=== PATIENT | female | born 1950 | race Hispanic/Latino ===

== ENCOUNTER 2017-03-31 04:15 | Observation (INO) | payer MEDICARE, BC ==
[~2017-03-31] VITALS: Ht 154.9 cm; Wt 71.2 kg
[~2017-03-31 04:15] MED LIST: CLONAZEPAM0.25 MG PO; CLOPIDOGREL75 MG PO; GLIMEPIRIDE2 MG PO; HYDRALAZINE HC100 MG PO; JANUVIA100 MG PO; LEXAPRO10 MG PO; LOSARTAN POTASS25 MG PO; METFORMIN HCL500 MG PO; PRAVASTATIN SOD40 MG PO; PROCARDIA XL90 MG PO; SYNTHROID50 MCG PO; TORSEMIDE20 MG PO; TRAZODONE HCL50 MG PO; XARELTO15 MG PO
[2017-03-31 04:36] LABS: BASOPHILS # (AUTO) 0.1 (0.0-0.1); EOSINOPHILS # (AUTO) 0.3 (0.0-0.4); EOSINOPHILS % 4.8 % (0.0-6.0); HEMATOCRIT 28.7 % (34.2-44.1); HEMOGLOBIN 9.3 g/dL (12.0-16.0); LYMPHOCYTES # (AUTO) 0.7 (1.0-3.2); LYMPHOCYTES % 13.3 % (18.0-39.1); MEAN CORPUSCULAR HEMOGLOBIN 30.7 pg (28-32); MEAN CORPUSCULAR HGB CONC 32.4 g/dL (31-35); MEAN CORPUSCULAR VOLUME 94.7 fL (81-99); MONOCYTES # (AUTO) 0.4 (0.2-0.8); MONOCYTES % 6.8 % (4.4-11.3); NEUTROPHILS # (AUTO) 3.9 (2.1-6.9); NEUTROPHILS % 73.9 % (38.7-80.0); PLATELET COUNT 263 x10e3/uL (140-360); RED BLOOD COUNT 3.03 x10e6/uL (3.6-5.1); RED CELL DISTRIBUTION WIDTH 13.2 % (11.7-14.4)
[2017-03-31] MEDS ORDERED: SODIUM CHLORIDE 0.9% 1000ML 1,000 ML ONE (04:37)
[2017-03-31] MEDS ORDERED: SODIUM CHLORIDE 0.9% 1000ML 1,000 ML IV ONE ×2 (04:45→05:45)
[2017-03-31 04:56] LABS: ALBUMIN 3.4 g/dL (3.5-5.0); ALBUMIN/GLOBULIN RATIO 1.1 (0.8-2.0); ANION GAP 14.8 mmol/L (8-16); CALCIUM 9.3 mg/dL (8.4-10.2); CREATININE, SERUM 2.17 mg/dL (0.57-1.11); POTASSIUM 3.8 mmol/L (3.5-5.1)
[2017-03-31 05:02] LABS: CREATINE KINASE MB 2.3 ng/mL (0.00-5.00); TROPONIN I 0.034 ng/mL (0-0.300)
--- NOTE | 2017-03-31 05:44 | Diagnostic Imaging Report ---
EXAMINATION: Head CT HISTORY: Weakness, near syncope COMPARISON: None. TECHNIQUE: Multidetector axial images were obtained without contrast from the foramen magnum to the vertex . The images were reconstructed using brain and bone algorithms. Thin section brain images were reformatted into coronal and sagittal planes. Intravenous contrast: None. Motion/streaking artifact limits the evaluation of the skull base and posterior cranial fossa. FINDINGS: Parenchyma: 1. Cortical subcortical encephalomalacia in the right opercular region involving the right medial/inferior frontal gyri, anterosuperior temporal and insular, with punctate calcification in the frontal wilson radiata and compensatory dilatation of the right lateral ventricle (mostly the frontal) as well as prominence of the overlying sulci. Associated overlying right pterional craniotomy, this may represent sequela from prior trauma and/or surgery. 2. No mass or hemorrhage. No CT evidence of acute territorial vascular insult. Extra-axial spaces:No abnormal density. No extra-axial fluid collections Brain volume: Moderate generalized portable Ventricles: No hydrocephalus or displacement. Arteries: No density suggestive of thrombus. Dural sinuses: No abnormal density. Extra-axial spaces: No abnormal density. Foramen magnum: No mass, Chiari malformation, or basilar invagination. Sella: Diffuse enlargement of the pituitary gland measuring about 11 mm maximum height, with possible pituitary adenoma versus hyperplasia, if clinically indicated a dedicated sella turcica MRI is recommended. Paranasal/mastoid sinuses: Imaged portions unremarkable. Skull/Scalp: No lytic or blastic lesions. No fractures. IMPRESSION: 1. No acute posttraumatic intracranial hemorrhage or CT evidence of acute cortical infarcts. 2. Right opercular encephalomalacia and overlying pterional craniotomy. 3. Incidentally noted enlargement of the pituitary gland as above. Signed by: Dr. Fernanda Simmons M.D. on 03/31/2017 5:41 AM
--- NOTE | 2017-03-31 05:47 | Diagnostic Imaging Report ---
CHEST SINGLE (PORTABLE), 03/31/2017 4:29 AM Technique: CHEST SINGLE (PORTABLE) Comparison: None available. Clinical history: Syncope Findings: See Impression Impression: 1. Mildly enlarged cardiac silhouette, likely accentuated by technique. Aortic calcification. 2. No consolidation or edema. 3. No effusion or pneumothorax. Signed by: Dr Shireen Boyer MD on 03/31/2017 5:43 AM
[2017-03-31] MEDS ORDERED: ONDANSETRON HCL INJ 2 MG/ML VIAL IV PRN (06:15)
[2017-03-31] MEDS ORDERED: DEXTROSE 50% SYRINGE 50 ML IV PRN (06:15)
[2017-03-31] MEDS: SODIUM CHLORIDE 0.9% 1000ML 1,000 ML IV SCH ×3 (06:40→21:14)
[2017-03-31] MEDS: INSULIN REGULAR, HUMAN 100 UNIT/1 ML 3ML VIAL SQ SCH ×4 (07:45→21:00)
[2017-03-31] MEDS ORDERED: LEVOTHYROXINE SODIUM 50 MCG TAB PO SCH (08:00)
[2017-03-31 08:30] VITALS: BP 177/72
[2017-03-31] MEDS: NIFEDIPINE CR 30 MG TAB PO SCH ×2 (09:00→13:19)
[2017-03-31] MEDS ORDERED: NIFEDIPINE 90 MG PO SCH (09:00)
[2017-03-31] MEDS: ESCITALOPRAM OXALATE 10 MG TAB PO SCH (09:00)
[2017-03-31] MEDS ORDERED: CLONAZEPAM 0.5 MG TAB PO SCH (09:00)
[2017-03-31] MEDS ORDERED: CLONAZEPAM 0.25 MG PO SCH (09:00)
[2017-03-31 09:07] VITALS: BP 177/72
[2017-03-31 12:39] VITALS: BP 177/75
[2017-03-31 16:48] VITALS: BP 187/75
--- NOTE | 2017-03-31 17:56 | History and Physical ---
CHIEF COMPLAINT: This 66-year-old female comes in with syncope and collapse. HISTORY OF PRESENTING ILLNESS: Ms. Kyle has a history of diabetes mellitus, hypertension, history of CVA in the past. She was in her usual state of health until she started her prep for colonoscopy, and went into the restroom at night time and could not get out of there. She collapsed and nearly lost consciousness. Apparently, there was no loss of consciousness. The patient did not have any seizure activity or apneic episode. She could not get up. A neighbor was called and the patient was rushed to the emergency room. She was found to have orthostatic hypotension and was admitted for dehydration and orthostasis. PAST MEDICAL HISTORY: History of hypertension, history of diabetes mellitus, history of HI, history of CVA, history of coronary artery disease. PAST SURGICAL HISTORY: History of brain surgery, history of PCI with stents. HOME MEDICATIONS: Atorvastatin, citalopram for depression, hydralazine 100 mg twice a day, losartan 50 mg 1/2 tablet daily, nifedipine 90 mg, Xarelto 15 mg and torsemide 20 mg, vitamin D ____ 3 times a day and calcium tablets. The patient is also on Klonopin as needed. REVIEW OF SYSTEMS: Negative for chest pain. Positive for some shortness of breath. No nausea, vomiting, diarrhea, no constipation. Diarrhea is secondary to the prep for colonoscopy. No diplopia and no blurry vision. Positive for weakness and tiredness. Positive for orthostasis. No headaches. PHYSICAL EXAMINATION GENERAL: The patient is alert and oriented x3. HEENT: Normocephalic, atraumatic. Pupils react to light and accommodation. CVS: S1 and S2 normal. Regular rate and rhythm. ABDOMEN: Nontender, nondistended. EXTREMITIES: No cyanosis, clubbing or edema. LABORATORY DATA: Labs of note, sodium 144, potassium 3.8, BUN 51, creatinine 2.17. White count is 5.26 and hemoglobin 9.3, hematocrit 28.7, platelets 263,000. 0.5. AST, ALT and alkaline phosphatase all normal. ASSESSMENT 1. Orthostatic hypotension secondary to fluid loss. 2. Acute kidney injury with history of chronic kidney disease. 3. History of hypertension. 4. History of diabetes mellitus. 5. History of anemia, presumably blood loss and that is why she is going to have a colonoscopy. PLAN: Will continue monitoring the patient. Dr. Juárez is on the case. Fluids have been started. Will check the CBC and CMP tomorrow. Will restart her home medications, except her blood thinners. Will hold back her blood pressure medicine secondary to her orthostasis and hypotension. Further recommendations depending on clinical course. Will continue to monitor the patient. The patient will probably be discharged after colonoscopy. Will keep her here and hydrate her. Job#: [id number]
[2017-03-31 19:25] VITALS: BP 163/65
[2017-03-31 20:00] VITALS: BP 163/65
[2017-03-31] MEDS: TRAZODONE HCL 50 MG TAB PO SCH (21:07)
[2017-03-31] MEDS: ATORVASTATIN 20 MG TAB PO SCH (21:07)
[2017-04-01 04:59] VITALS: BP 157/67
[2017-04-01] MEDS: SODIUM CHLORIDE 0.9% 1000ML 1,000 ML IV SCH ×2 (05:40→14:07)
[2017-04-01] MEDS ORDERED: CITRATE OF MAGNESIA 300ML BOTTLE PO ONE ×2 (06:30→07:30)
[2017-04-01 07:28] LABS: BASOPHILS % 0.7 % (0.0-1.0); EOSINOPHILS # (AUTO) 0.2 (0.0-0.4); EOSINOPHILS % 4.9 % (0.0-6.0); LYMPHOCYTES # (AUTO) 0.6 (1.0-3.2); LYMPHOCYTES % 14.8 % (18.0-39.1); MEAN CORPUSCULAR HGB CONC 33.2 g/dL (31-35); MEAN CORPUSCULAR VOLUME 93.4 fL (81-99); MONOCYTES # (AUTO) 0.4 (0.2-0.8); MONOCYTES % 8.6 % (4.4-11.3); NEUTROPHILS # (AUTO) 3.1 (2.1-6.9); NEUTROPHILS % 70.8 % (38.7-80.0); PLATELET COUNT 206 x10e3/uL (140-360); RED BLOOD COUNT 2.42 x10e6/uL (3.6-5.1); RED CELL DISTRIBUTION WIDTH 13.2 % (11.7-14.4)
[2017-04-01] MEDS: INSULIN REGULAR, HUMAN 100 UNIT/1 ML 3ML VIAL SQ SCH ×4 (07:30→21:00)
[2017-04-01 07:44] LABS: HEMOGLOBIN 7.5 g/dL (12.0-16.0)
[2017-04-01 07:45] LABS: HEMATOCRIT 22.6 % (34.2-44.1)
[2017-04-01 07:52] LABS: ALBUMIN 2.5 g/dL (3.5-5.0); ANION GAP 9.3 mmol/L (8-16); CALCIUM 8.2 mg/dL (8.4-10.2); CREATININE, SERUM 1.5 mg/dL (0.57-1.11); POTASSIUM 3.3 mmol/L (3.5-5.1)
[2017-04-01 08:27] VITALS: BP 172/72
[2017-04-01] MEDS ORDERED: SODIUM CHLORIDE 0.9% 250ML 250 ML IV ONE (09:00)
[2017-04-01] MEDS: LOSARTAN POTASSIUM 25 MG TAB PO SCH (09:00)
[2017-04-01] MEDS: CHOLECALCIFEROL 1,000 UNIT TAB PO SCH (09:00)
[2017-04-01] MEDS: HYDRALAZINE HCL 25 MG TAB PO SCH ×2 (09:00→17:00)
[2017-04-01] MEDS: OYST-CAL-D 500MG TABLET PO SCH (09:00)
[2017-04-01] MEDS: ESCITALOPRAM OXALATE 10 MG TAB PO SCH (09:00)
[2017-04-01 12:12] VITALS: BP 154/61
[2017-04-01] MEDS: HYDRALAZINE HCL 20 MG/ML VIAL IV PRN ×3 (12:52→19:40)
[2017-04-01] MEDS ORDERED: LIDOCAINE HCL 2% LOCAL INJ 5 ML SDV VIAL INJ ONE (13:49)
[2017-04-01] MEDS ORDERED: HYOSCYAMINE SULFATE 0.5 MG/ML AMP ONE (13:49)
[2017-04-01] MEDS ORDERED: PROPOFOL IV EMULSION 10 MG/ML 50 ML VIAL ONE (13:49)
[2017-04-01] MEDS ORDERED: FUROSEMIDE INJ 10 MG/ML 2 ML VIAL IV ONE ×2 (15:30→17:00)
[2017-04-01] MEDS ORDERED: MIDAZOLAM HCL 2 MG/2 ML VIAL ONE (15:41)
[2017-04-01] MEDS ORDERED: FENTANYL CITRATE/PF 100MCG/2 ML INJ ONE (15:41)
[2017-04-01 16:21] VITALS: BP 180/77
[2017-04-01] MEDS ORDERED: SODIUM CHLORIDE 0.9% 250ML 250 ML ONE (16:46)
[2017-04-01 20:00] VITALS: BP 108/62
[2017-04-01] MEDS: TRAZODONE HCL 50 MG TAB PO SCH (23:23)
[2017-04-01] MEDS: ATORVASTATIN 20 MG TAB PO SCH (23:23)
[2017-04-02] VITALS: BP 179/76
[2017-04-02 04:00] VITALS: BP 198/81
[2017-04-02] MEDS: INSULIN REGULAR, HUMAN 100 UNIT/1 ML 3ML VIAL SQ SCH (07:30)
[2017-04-02 08:18] VITALS: BP 143/74
[2017-04-02] MEDS: LOSARTAN POTASSIUM 25 MG TAB PO SCH (09:01)
[2017-04-02] MEDS: HYDRALAZINE HCL 25 MG TAB PO SCH (09:01)
[2017-04-02] MEDS: CHOLECALCIFEROL 1,000 UNIT TAB PO SCH (09:02)
[2017-04-02] MEDS: ESCITALOPRAM OXALATE 10 MG TAB PO SCH (09:02)
[2017-04-02] MEDS: NIFEDIPINE CR 30 MG TAB PO SCH (09:02)
[2017-04-02] MEDS: OYST-CAL-D 500MG TABLET PO SCH (09:02)
[2017-04-02 09:31] LABS: HEMATOCRIT 30.6 % (34.2-44.1); HEMOGLOBIN 10.5 g/dL (12.0-16.0)
== END 2017-04-02 10:31 | disposition home or self-care (01) ==
LOC: ER 04:15 → ERHOLD 06:14 → IMCU 08:13
PROVIDERS: ADMIT Family Medicine; ATTEND Family Medicine
DX: I95.1 Orthostatic hypotension (principal); E86.0 Dehydration; E86.1 Hypovolemia; N17.9 Acute kidney failure, unspecified; I10 Essential (primary) hypertension; E11.9 Type 2 diabetes mellitus without complications; D64.9 Anemia, unspecified; Z79.01 Long term (current) use of anticoagulants; Z86.73 Personal history of transient ischemic attack (TIA), and cerebral infarction without residual deficits; I25.10 Atherosclerotic heart disease of native coronary artery without angina pectoris; I25.2 Old myocardial infarction; K62.1 Rectal polyp; D12.3 Benign neoplasm of transverse colon; K57.30 Diverticulosis of large intestine without perforation or abscess without bleeding; D50.0 Iron deficiency anemia secondary to blood loss (chronic); K64.8 Other hemorrhoids
CPT/HCPCS: 36430; 45384; P9016; 36415; 45385; 70450; 71010; 80053; 82550; 82553; 82948; 84484; 85014; 85018; 85025; 86850; 86900; 86920; 88305; 93005; 99284; G0378; J0360; J1940; J1980; J2001; J2250; J7030; J7050; J7799

== ENCOUNTER → 2017-05-11 | Day surgery (SDC) | payer MEDICARE, BC ==
[2017-05-08 16:20] LABS: BASOPHILS % 0.6 % (0.0-1.0); EOSINOPHILS # (AUTO) 0.4 (0.0-0.4); EOSINOPHILS % 7.2 % (0.0-6.0); HEMATOCRIT 29.5 % (34.2-44.1); HEMOGLOBIN 9.5 g/dL (12.0-16.0); LYMPHOCYTES # (AUTO) 0.8 (1.0-3.2); LYMPHOCYTES % 15.2 % (18.0-39.1); MEAN CORPUSCULAR HEMOGLOBIN 30.7 pg (28-32); MEAN CORPUSCULAR HGB CONC 32.2 g/dL (31-35); MEAN CORPUSCULAR VOLUME 95.5 fL (81-99); MONOCYTES # (AUTO) 0.4 (0.2-0.8); MONOCYTES % 8.2 % (4.4-11.3); NEUTROPHILS # (AUTO) 3.7 (2.1-6.9); NEUTROPHILS % 68.6 % (38.7-80.0); PLATELET COUNT 189 x10e3/uL (140-360); RED BLOOD COUNT 3.09 x10e6/uL (3.6-5.1)
[~2017-05-11] MED LIST changes: +ATORVASTATIN CA20 MG PO; +FENTANYL CITRATE/PF 100MCG/2 ML INJ ONE; +MIDAZOLAM HCL 2 MG/2 ML VIAL ONE; +OYSTER SHELL C1 EACH PO; +PROPOFOL IV EMULSION 10 MG/ML 50 ML VIAL ONE; +VIT D PO
--- OUTSIDE RECORDS SUMMARY | 2017-05-11 05:57 | XMS REPORT ---
Author Author [facility] Address Unknown Phone Unavailable Care Team Providers Care Personal Property Assessor Name Role Phone CASSI DAILY Unavailable Unavailable Problems This patient has no known problems. Allergies, Adverse Reactions, Alerts This patient has no known allergies or adverse reactions. Medications This patient has no known medications. Results Test Description Test Time Test Comments Text Results Atomic Results Result Comments CT BRAIN WO [place] [address] Patient Name: CATALINO SYKES MR #: [id number] : 1950 Age/Sex: 66/F Req #: [id number] Adm Physician: Ordered by: CASSI DAILY MD Report # : [id number] Location: ER Room/Bed: Procedure: [id number] CT/CT BRAIN WO Exam Date: 03/31/17 Exam Time: 0510 REPORT STATUS: Signed EXAMINATION: Head CT HISTORY: Weakness , near syncope COMPARISON: None. TECHNIQUE: Multidetector axial images were obtained without contrast from the foramen magnum to the vertex . The images were reconstructed using brain and bone algorithms. Thin section brain images were reformatted into coronal and sagittal planes. Intravenous contrast: None. Motion/streaking artifact limits the evaluation of the skull base and posterior cranial fossa. FINDINGS: Parenchyma: 1. Cortical subcortical encephalomalacia in the right opercular region involving the right medial/inferior frontal gyri, anterosuperior temporal and insular, with punctate calcification in the frontal wilson radiata and compensatory dilatation of the right lateral ventricle (mostly the frontal) as well as prominence of the overlying sulci. Associated overlying right pterional craniotomy, this may represent sequela from prior trauma and/or surgery. 2. No mass or hemorrhage. No CT evidence of acute territorial vascular insult. Extra-axial spaces:No abnormal density. No extra-axial fluid collections Brain volume: Moderate generalized portable Ventricles: No hydrocephalus or displacement. Arteries: No density suggestive of thrombus. Dural sinuses: No abnormal density. Extra-axial spaces: No abnormal density. Foramen magnum: No mass, Chiari malformation, or basilar invagination. Sella: Diffuse enlargement of the pituitary gland measuring about 11 mm maximum height, with possible pituitary adenoma versus hyperplasia, if clinically indicated a dedicated sella turcica MRI is recommended. Paranasal/mastoid sinuses : Imaged portions unremarkable. Skull/Scalp: No lytic or blastic lesions. No fractures. IMPRESSION: 1. No acute posttraumatic intracranial hemorrhage or CT evidence of acute cortical infarcts. 2. Right opercular encephalomalacia and overlying pterional craniotomy. 3. Incidentally noted enlargement of the pituitary gland as above. Signed by: Dr. Brina Simmons M.D. on 03/31/2017 5:41 AM Dictated By: BRINA SIMMONS MD 0 Transcribed By: GRIS on 03/31/17540 COPY TO: CASSI DAILY MD [facility] ([facility] [place] [address] Patient Name: CATALINO SYKES MR #: [id number] : 1950 Age/Sex: 66/F Req #: [id number] Adm Physician: Ordered by: CASSI DAILY MD Report #: [id number] Location: Room/Bed: ___ Procedure: [id number] DX/CHEST SINGLE (PORTABLE) Exam Date: 03/31/17 Exam Time: 509 REPORT STATUS: Signed CHEST SINGLE (PORTABLE), 03/31/2017 4:29 AM Technique: CHEST SINGLE (PORTABLE) Comparison: None available. Clinical history: Syncope Findings: See Impression Impression: 1. Mildly enlarged cardiac silhouette, likely accentuated by technique. Aortic calcification. 2. No consolidation or edema. 3. No effusion or pneumothorax. Signed by: Dr Wilber Boyer MD on 03/31/2017 5:43 AM Dictated By: WILBER BOYER MD 2 Transcribed By: GRIS on 03/31 COPY TO: CASSI DAILY MD
--- NOTE | 2017-05-11 08:54 | Operative Report ---
DATE OF PROCEDURE: May 11, 2017 REFERRING PHYSICIAN: Dr. Bennie Perdomo PROCEDURE PERFORMED: Esophagogastroduodenoscopy with polypectomy and biopsies. INDICATIONS FOR EGD: Anemia. MEDICATION: Patient was done under MAC. Please see anesthesiologist's note. PROCEDURE: With the patient in the left lateral decubitus position, the flexible fiberoptic Olympus gastroscope was introduced into the esophagus under direct visualization without any difficulty. There was some patchy erythema noted in the distal esophagus. The scope was then advanced with ease into the stomach traversing a small sliding hiatal hernia. A minute submucosal nodule was noted in the upper body along the lesser curve and that was biopsied. Mucosa overlying the antrum and the body revealed some diffuse erythema and low-grade to moderate edema, and biopsies were obtained and sent to stain for H. pylori. Pylorus was of normal contour and shape. A large approximately 1 cm pedunculated polyp was noted in the pyloric channel that was removed per snare electrocautery. The scope was then advanced with ease into the stomach. Mucosa overlying the proximal 2nd portion and the duodenal bulb appeared to be within normal limits. The scope was then withdrawn back into the stomach and retroflexed. The mucosa overlying the fundus and the cardia appeared to be within normal limits. The scope was then straightened out. The stomach was decompressed. The scope was subsequently withdrawn. Patient tolerated the procedure well. IMPRESSION 1. Distal esophagitis. 2. Small sliding hiatal hernia. 3. Gastritis, biopsied. Biopsies sent to stain for Helicobacter pylori. 4. Minute submucosal nodule, upper body, the lesser curvature, biopsied. 5. Approximately 1 cm pedunculated polyp, pyloric channel, removed per snare electrocautery. PLAN: Follow up histology. Initiate Protonix 40 mg 1 p.o. q.a.m. a.c. Job#: [id number] RI cc:BENNIE PERDOMO MD
== END | disposition home or self-care (01) ==
LOC: OR 05:55
PROVIDERS: ATTEND Internal Medicine Gastroenterology
DX: D64.9 Anemia, unspecified (principal); K63.5 Polyp of colon; K31.7 Polyp of stomach and duodenum; K29.50 Unspecified chronic gastritis without bleeding; K31.89 Other diseases of stomach and duodenum; K44.9 Diaphragmatic hernia without obstruction or gangrene; K20.9 Esophagitis, unspecified; K59.00 Constipation, unspecified; K57.90 Diverticulosis of intestine, part unspecified, without perforation or abscess without bleeding; I69.854 Hemiplegia and hemiparesis following other cerebrovascular disease affecting left non-dominant side; G47.33 Obstructive sleep apnea (adult) (pediatric); I25.10 Atherosclerotic heart disease of native coronary artery without angina pectoris; I25.2 Old myocardial infarction; I10 Essential (primary) hypertension; E11.9 Type 2 diabetes mellitus without complications; F32.9 Major depressive disorder, single episode, unspecified; F41.9 Anxiety disorder, unspecified; Z01.810 Encounter for preprocedural cardiovascular examination; Z01.812 Encounter for preprocedural laboratory examination; Z79.02 Long term (current) use of antithrombotics/antiplatelets; Z68.26 Body mass index [BMI] 26.0-26.9, adult; Z95.5 Presence of coronary angioplasty implant and graft; Z80.0 Family history of malignant neoplasm of digestive organs
CPT/HCPCS: 36415 ×2; 43239; 43251; 82948; 85025; 88305; 88312; 93005; J2250

== ENCOUNTER 2017-07-06 10:41 | Observation (INO) | payer MEDICARE, BC ==
[~2017-07-06] VITALS: Ht 157.5 cm; Wt 67.8 kg
[~2017-07-06 10:41] MED LIST changes: -FENTANYL CITRATE/PF 100MCG/2 ML INJ ONE; -MIDAZOLAM HCL 2 MG/2 ML VIAL ONE; -PROPOFOL IV EMULSION 10 MG/ML 50 ML VIAL ONE
[2017-07-06] MEDS ORDERED: SODIUM CHLORIDE 0.9% 250ML 250 ML IV ONE (13:00)
[2017-07-06] MEDS ORDERED: FUROSEMIDE INJ 10 MG/ML 2 ML VIAL IV PRN (13:00)
[2017-07-06 13:06] VITALS: BP 162/74
[2017-07-06 13:28] LABS: BASOPHILS % 0.5 % (0.0-1.0); EOSINOPHILS # (AUTO) 0.5 (0.0-0.4); EOSINOPHILS % 8.5 % (0.0-6.0); LYMPHOCYTES # (AUTO) 0.5 (1.0-3.2); MEAN CORPUSCULAR HEMOGLOBIN 31.6 pg (28-32); MEAN CORPUSCULAR HGB CONC 33.2 g/dL (31-35); MEAN CORPUSCULAR VOLUME 95.2 fL (81-99); MONOCYTES # (AUTO) 0.5 (0.2-0.8); MONOCYTES % 8.5 % (4.4-11.3); NEUTROPHILS # (AUTO) 4.5 (2.1-6.9); NEUTROPHILS % 74.2 % (38.7-80.0); PLATELET COUNT 284 x10e3/uL (140-360); RED BLOOD COUNT 2.09 x10e6/uL (3.6-5.1)
[2017-07-06 13:36] LABS: HEMOGLOBIN 6.6 g/dL (12.0-16.0)
[2017-07-06 13:37] LABS: HEMATOCRIT 19.9 % (34.2-44.1)
[2017-07-06 14:34] VITALS: BP 162/74
[2017-07-06 15:41] VITALS: BP 183/77
[2017-07-06] MEDS: HYDRALAZINE HCL 100 MG TABLET PO SCH (16:05)
--- NOTE | 2017-07-06 17:08 | History and Physical ---
This patient comes in for symptomatic anemia. HISTORY OF PRESENT ILLNESS: Ms. Janae Kyle has history of anemia of chronic disease and also anemia of iron deficiency who was in usual good health until she came in and had a blood test with an oncologist and was found to have hemoglobin of 6.5. Patient was directly admitted for iron transfusion. Patient's symptoms include fatigue, tiredness, and inability to keep awake. PAST MEDICAL HISTORY: History of hyperlipidemia, history of hypertension, history of coronary artery disease, history of chronic kidney disease, and also history of sleep apnea and hypothyroidism. Patient also had a history of cerebral infarction and history of moyamoya disease, status post surgery. MEDICATIONS: Medications that she takes at home are atorvastatin 40 mg, Procardia 90 mg, hydralazine 50 mg, torsemide 20 mg, losartan 25 mg, Xarelto 50 mg twice a day, Synthroid 50 mcg, and clonazepam 0.25 as needed. SURGICAL HISTORY: History of repair of moyamoya cerebral surgery, history of heart stent in 2001, and revascularization of moyamoya in 2014. FAMILY HISTORY: History of diabetes, hypertension, and heart disease in the family. REVIEW OF SYSTEMS: Negative for chest pain. No some shortness of breath. No nausea, vomiting, or diarrhea. No constipation. No rectal bleeding. Positive for extreme fatigue and tiredness. Positive also for some congestion and also with right-sided redness in the eye. PHYSICAL EXAMINATION GENERAL: The patient is alert and oriented x3, somewhat fatigued. HEENT: Pallor is present. CV: S1 and S2, tachy. LUNGS: Clear to auscultation bilaterally. ABDOMEN: Nontender and nondistended. EXTREMITIES: No clubbing. No cyanosis. No edema. LABORATORY VALUES: Hemoglobin is 6.5. ASSESSMENT 1. Anemia of chronic disease and anemia of iron deficiency: We will go ahead and transfuse the patient; 2 units of packed red blood cells have been ordered. The patient will be transfused; 20 of Lasix in between will be given. Patient can be discharged after the transfusion. 2. Hypertension and hyperlipidemia: We will continue back on her CV medications. Further recommendations per clinical course. The nurses have been given orders of Tylenol and Benadryl if needed for the transfusion. We will continue to monitor the patient in the morning with posttransfusion H and H and can be discharged home after that. Job#: [id number] VAS
[2017-07-06 20:00] VITALS: BP 193/79
[2017-07-06] MEDS ORDERED: TRAZODONE HCL 50 MG TAB PO SCH (21:00)
[2017-07-06] MEDS ORDERED: ATORVASTATIN 20 MG TAB PO SCH (21:00)
[2017-07-06] MEDS ORDERED: ATORVASTATIN 40 MG TAB PO SCH (21:00)
[2017-07-06] MEDS ORDERED: SODIUM CHLORIDE 0.9% 50ML 50 ML ONE (22:51)
[2017-07-06] MEDS ORDERED: FUROSEMIDE INJ 10 MG/ML 2 ML VIAL IV ONE (23:30)
[2017-07-07] VITALS: BP 185/111
[2017-07-07 04:00] VITALS: BP 188/81
[2017-07-07 07:20] VITALS: BP 183/72
[2017-07-07 07:36] VITALS: BP 183/72
[2017-07-07 07:50] LABS: BASOPHILS % 0.6 % (0.0-1.0); EOSINOPHILS # (AUTO) 0.6 (0.0-0.4); EOSINOPHILS % 9.4 % (0.0-6.0); HEMATOCRIT 28.2 % (34.2-44.1); HEMOGLOBIN 9.7 g/dL (12.0-16.0); LYMPHOCYTES # (AUTO) 0.6 (1.0-3.2); LYMPHOCYTES % 10.2 % (18.0-39.1); MEAN CORPUSCULAR HEMOGLOBIN 31.4 pg (28-32); MEAN CORPUSCULAR HGB CONC 34.4 g/dL (31-35); MEAN CORPUSCULAR VOLUME 91.3 fL (81-99); MONOCYTES # (AUTO) 0.6 (0.2-0.8); MONOCYTES % 9.4 % (4.4-11.3); NEUTROPHILS # (AUTO) 4.3 (2.1-6.9); NEUTROPHILS % 70.1 % (38.7-80.0); PLATELET COUNT 310 x10e3/uL (140-360); RED BLOOD COUNT 3.09 x10e6/uL (3.6-5.1); RED CELL DISTRIBUTION WIDTH 14.3 % (11.7-14.4)
[2017-07-07] MEDS: HYDRALAZINE HCL 100 MG TABLET PO SCH (08:43)
[2017-07-07] MEDS ORDERED: TORSEMIDE 10 MG TAB PO SCH (09:00)
[2017-07-07] MEDS ORDERED: ESCITALOPRAM OXALATE 10 MG TAB PO SCH (09:00)
[2017-07-07] MEDS ORDERED: NIFEDIPINE 90 MG PO SCH (09:00)
[2017-07-07] MEDS ORDERED: LOSARTAN POTASSIUM 25 MG TAB PO SCH (09:00)
[2017-07-07] MEDS ORDERED: NIFEDIPINE CR 30 MG TAB PO SCH (09:00)
[2017-07-07] MEDS ORDERED: RIVAROXABAN 15 MG TABLET PO SCH (09:00)
[2017-07-07] MEDS ORDERED: NON-FORMULARY MEDICATION (Torsemide 20 MG) PO SCH (09:00)
== END 2017-07-07 09:50 | disposition home or self-care (01) ==
LOC: MED/SURG3 12:35
PROVIDERS: ADMIT Family Medicine; ATTEND Family Medicine
DX: D50.0 Iron deficiency anemia secondary to blood loss (chronic) (principal); I10 Essential (primary) hypertension; E78.5 Hyperlipidemia, unspecified; N18.9 Chronic kidney disease, unspecified; E03.9 Hypothyroidism, unspecified; G47.30 Sleep apnea, unspecified; I67.5 Moyamoya disease
CPT/HCPCS: 36430; P9016; 36415; 85025; 86850; 86900; 86920; G0378; J1940; J7050

== ENCOUNTER → 2017-07-26 | Outpatient (CLI) | payer MEDICARE, BC ==
--- NOTE | 2017-07-26 12:12 | Diagnostic Imaging Report ---
PROCEDURE:SMALL BOWEL SERIES INDICATION:Anemia COMPARISON:None. TECHNIQUE:Routine single contrast small bowel follow-through after enteric positive contrast. Transit time: 90 minutes. Fluoroscopy time: 0.5 minutes. Cumulative air kerma: 27.85 mGy. FINDINGS: Small bowel demonstrates normal caliber, contour and mucosal pattern. No conspicuous mass, stricture or other abnormality. CONCLUSION: Normal small bowel follow-through. Dictated by: Otilio Naranjo M.D. on 07/26/2017 at 12:13 Electronically approved by: Otilio Naranjo M.D. on 07/26/2017 at 12:13
== END ==
LOC: DX 09:08
PROVIDERS: ATTEND Internal Medicine Gastroenterology
DX: D64.9 Anemia, unspecified (principal)
CPT/HCPCS: 74250

== ENCOUNTER → 2017-11-07 | Outpatient (CLI) | payer MEDICARE, BC ==
--- NOTE | 2017-11-07 10:39 | Diagnostic Imaging Report ---
PROCEDURE:TRANSVAGINAL ULTRASOUND COMPARISON:None. INDICATIONS:ANEMIA TECHNIQUE: Grayscale transverse and sagittal transabdominal and transvaginal images were obtained of the pelvis. Transvaginal imaging was medically necessary to better evaluate the endometrium. FINDINGS: UTERUS: 4.3 x 1.8 x 3.4 cm. Uniform myometrial echotexture. No mass. ENDOMETRIUM: Small amount of nonspecific endometrial fluid. Endometrial thickness measures 2 mm. RIGHT OVARY: 1.8 x 1 x 1.9 cm. Grossly normal vascularity by color Doppler analysis. LEFT OVARY: Nonvisualized. There is no free fluid within the pelvis. No adnexal masses. CONCLUSION: Trace nonspecific endometrial free fluid with otherwise normal thickness of the endometrium for a postmenopausal patient. Nonvisualization of the left ovary likely related to postmenopausal status and overlying bowel gas. Dictated by: Kwame Wright M.D. on 11/07/2017 at 10:44 Electronically approved by: Kwame Wright M.D. on 11/07/2017 at 10:44
--- NOTE | 2017-11-07 10:39 | Diagnostic Imaging Report ---
PROCEDURE:US PELVIS COMPLETE NON OB COMPARISON:None. INDICATIONS:ANEMIA CONCLUSION: Please refer to "US TRANSVAGINAL" performed at the same date and time for full dictated report. Dictated by: Kwame Wright M.D. on 11/07/2017 at 10:44 Electronically approved by: Kwame Wright M.D. on 11/07/2017 at 10:44
== END ==
LOC: US 08:32
PROVIDERS: ATTEND Family Medicine
DX: D64.9 Anemia, unspecified (principal)
CPT/HCPCS: 76830; 76856

== ENCOUNTER 2018-04-08 18:06 | Inpatient (IN) | payer MEDICARE, BC ==
[~2018-04-08] VITALS: Ht 157.5 cm; Wt 80.3 kg
[2018-04-08] MEDS ORDERED: SODIUM CHLORIDE 0.9% 1000ML 1,000 ML IV STA (18:30)
[2018-04-08 19:02] LABS: BASOPHILS % 0.5 % (0.0-1.0); EOSINOPHILS # (AUTO) 0.2 (0.0-0.4); EOSINOPHILS % 1.8 % (0.0-6.0); HEMATOCRIT 23.7 % (34.2-44.1); LYMPHOCYTES # (AUTO) 0.5 (1.0-3.2); LYMPHOCYTES % 5.3 % (18.0-39.1); MEAN CORPUSCULAR HEMOGLOBIN 31.5 pg (28-32); MEAN CORPUSCULAR HGB CONC 31.6 g/dL (31-35); MEAN CORPUSCULAR VOLUME 99.6 fL (81-99); MONOCYTES # (AUTO) 0.8 (0.2-0.8); MONOCYTES % 8.6 % (4.4-11.3); NEUTROPHILS # (AUTO) 7.4 (2.1-6.9); PLATELET COUNT 214 x10e3/uL (140-360); RED BLOOD COUNT 2.38 x10e6/uL (3.6-5.1); RED CELL DISTRIBUTION WIDTH 13.1 % (11.7-14.4)
[2018-04-08 19:12] LABS: INR 1.1; PARTIAL THROMBOPLASTIN TIME 29.8 seconds (23.8-35.5); PROTHROMBIN TIME 15.2 seconds (11.9-14.5)
--- NOTE | 2018-04-08 19:14 | NUR ---
REPORT GIVEN TO CATIA CARRILLO
[2018-04-08 19:35] LABS: B-TYPE NATRIURETIC PEPTIDE2 1955.8 pg/mL (0-100)
[2018-04-08 19:37] LABS: ALBUMIN 2.8 g/dL (3.5-5.0); ANION GAP 12.1 mmol/L (8-16); CALCIUM 8.4 mg/dL (8.4-10.2); CREATININE, SERUM 2.76 mg/dL (0.57-1.11); MAGNESIUM 2.1 MG/DL (1.3-2.1); POTASSIUM 4.1 mmol/L (3.5-5.1)
--- NOTE | 2018-04-08 19:40 | Diagnostic Imaging Report ---
EXAMINATION: CHEST SINGLE (PORTABLE) INDICATION: Cough, hypotensive COMPARISON: Chest x-ray 01/29/2017 FINDINGS: AP view TUBES and LINES: None. LUNGS: Hazy right basilar and retrocardiac opacities. PLEURA: No pleural effusion or pneumothorax. HEART AND MEDIASTINUM: Aortic arch calcifications. Mild enlargement of the cardiac silhouette. BONES AND SOFT TISSUES: No acute osseous lesion. Soft tissues are unremarkable. UPPER ABDOMEN: No free air under the diaphragm. IMPRESSION: Bibasilar opacities are concerning for pneumonia in the appropriate clinical context. Signed by: DR. Bradly Abdul MD on 04/08/2018 7:36 PM
[2018-04-08 19:43] LABS: CREATINE KINASE MB 2.5 ng/mL (0-5.0)
[2018-04-08 19:46] LABS: BAND NEUTROPHILS % (MANUAL) 4 %; LYMPHOCYTES % (MANUAL) 4 % (19-48); MONOCYTES % (MANUAL) 12 % (3.4-9.0); NEUTROPHILS % (MANUAL) 80 % (40-74)
[2018-04-08 19:47] LABS: ANISOCYTOSIS F; PLATELET ESTIMATE ADEQUATE; PLATELET MORPHOLOGY COMMENT NORMAL; POIKILOCYTOSIS S; RBC MORPHOLOGY COMMENT ABNORMAL
[2018-04-08 19:53] LABS: HEMOGLOBIN 7.5 g/dL (12.0-16.0)
--- NOTE | 2018-04-08 22:06 | Diagnostic Imaging Report ---
EXAM: CT Chest WITHOUT contrast INDICATION: Abnormal chest x-ray. Pneumonia. COMPARISON: Chest x-ray 04/08/2018 TECHNIQUE: Chest was scanned utilizing a multidetector helical scanner from the lung apex through the level of the adrenal glands without administration of IV contrast. Absence of intravenous contrast decreases sensitivity for detection of lymphadenopathy and vascular pathology. Coronal and sagittal reformations were obtained. Routine protocol was performed. IV CONTRAST: None COMPLICATIONS: None RADIATION DOSE: Total DLP: 506.6 mGy*cm Estimated effective dose: (DLP x 0.014 x size factor) mSv CTDIvol has been reviewed. It is below the limits set by the Radiation Protocol Committee (RPC). FINDINGS: LINES/ TUBES: None. LUNGS AND AIRWAYS: Right lower lobe consolidation with air bronchograms. Posterior right lower lobe atelectasis secondary to adjacent effusion. Scattered groundglass and nodular opacities, for example measuring 1.5 cm in the upper lobe (series 3 image 42) and tree-in-bud opacities in the right upper lobe (coronal image 37). Slight interlobular septal thickening without dependent ground glass opacities. Airways are normal. PLEURA: Small right and trace left pleural effusions. No pneumothorax. HEART AND MEDIASTINUM: The thyroid gland is normal. Multiple prominent but predominantly subcentimeter mediastinal lymph nodes, likely reactive. Mild cardiomegaly. There is no pericardial effusion. Aortic and coronary artery calcifications. Hypoattenuation of the cardiac blood pool suggesting anemia. UPPER ABDOMEN: Small hiatal hernia. Unremarkable. BONES: The visualized bony thorax is within normal limits. SOFT TISSUES: Unremarkable. IMPRESSION: Right lower lobe pneumonia and scattered bilateral likely infectious nodules. Small right and trace left pleural effusions. Prominent mediastinal lymph nodes, likely reactive. Mild interstitial edema. Signed by: DR. Bradly Abdul MD on 04/08/2018 10:02 PM
[2018-04-08] MEDS ORDERED: SODIUM CHLORIDE 0.9% 250ML 250 ML IV ONE (23:00)
[2018-04-08] MEDS ORDERED: DEXTROSE 50% SYRINGE 50 ML IV PRN (23:00)
[2018-04-09] MEDS: CEFTRIAXONE SOD 1 GM/NS 50 ML 50 ML IV SCH ×2 (00:07→21:38)
[2018-04-09] MEDS: SODIUM CHLORIDE 0.9% 1000ML 1,000 ML IV SCH ×3 (00:07→17:47)
[2018-04-09] MEDS: AZITHROMYCIN 500MG/NS 250 ML 250 ML IV SCH ×2 (01:24→08:16)
[2018-04-09] MEDS: IPRATROPIUM BROMIDE 0.02% 2.5 ML NEB NEB SCH ×3 (01:28→15:30)
[2018-04-09] MEDS: ALBUTEROL SULF 0.083% NEB SOLN 3 ML NEB NEB SCH ×5 (01:28→15:30)
[2018-04-09 01:43] LABS: CLARITY,URINE CLOUDY (CLEAR); COLOR,URINE YELLOW (YELLOW)
[2018-04-09 01:44] LABS: BILIRUBIN,URINE NEGATIVE (NEGATIVE); KETONES,URINE NEGATIVE (NEGATIVE); LEUKOCYTE ESTERASE ,URINE NEGATIVE (NEGATIVE); NITRITE,URINE NEGATIVE (NEGATIVE); PROTEIN,URINE DIPSTICK 2+ (NEGATIVE); URINE UROBILINOGEN 0.2 mg/dL (0.2 - 1)
[2018-04-09 01:53] LABS: BACTERIA,URINE MODERATE /HPF; EPITHELIAL CELLS,URINE FEW /LPF
[2018-04-09 01:54] LABS: AMORPHOUS SEDIMENT,URINE MODERATE (FEW); MUCUS,URINE MODERATE (RARE)
[2018-04-09 02:06] LABS: CREATINE KINASE MB 2.7 ng/mL (0-5.0)
[2018-04-09 07:54] LABS: BASOPHILS % 0.2 % (0.0-1.0); EOSINOPHILS # (AUTO) 0.2 (0.0-0.4); EOSINOPHILS % 2.7 % (0.0-6.0); LYMPHOCYTES # (AUTO) 0.5 (1.0-3.2); LYMPHOCYTES % 6.4 % (18.0-39.1); MEAN CORPUSCULAR HEMOGLOBIN 31.4 pg (28-32); MEAN CORPUSCULAR HGB CONC 31.4 g/dL (31-35); MONOCYTES # (AUTO) 0.9 (0.2-0.8); MONOCYTES % 10.8 % (4.4-11.3); NEUTROPHILS # (AUTO) 6.4 (2.1-6.9); NEUTROPHILS % 79.5 % (38.7-80.0); PLATELET COUNT 217 x10e3/uL (140-360); RED CELL DISTRIBUTION WIDTH 13.1 % (11.7-14.4)
[2018-04-09 07:58] LABS: HEMOGLOBIN 6.9 g/dL (12.0-16.0)
--- NOTE | 2018-04-09 08:04 | NUR ---
critical labs rec'd. Dr. Yañez made aware. Orders rec'd.
[2018-04-09 08:12] LABS: CREATINE KINASE MB 1.8 ng/mL (0-5.0)
[2018-04-09 08:54] LABS: ANION GAP 12.8 mmol/L (8-16); CREATININE, SERUM 2.5 mg/dL (0.57-1.11); POTASSIUM 3.8 mmol/L (3.5-5.1)
[2018-04-09] MEDS ORDERED: SODIUM CHLORIDE 0.9% 250ML 250 ML ONE ×2 (09:05→13:33)
[2018-04-09] MEDS ORDERED: BUPROPION HCL100 MG PO (09:40)
[2018-04-09] MEDS ORDERED: MYRBETRIQ25 MG PO (09:42)
[2018-04-09 09:43] VITALS: BP 154/67
[2018-04-09 10:00] LABS: EOSINOPHILS % (MANUAL) 5 % (0-7); LYMPHOCYTES % (MANUAL) 6 % (19-48); MONOCYTES % (MANUAL) 9 % (3.4-9.0); NEUTROPHILS % (MANUAL) 80 % (40-74)
[2018-04-09 10:01] LABS: ANISOCYTOSIS SLIGHT; HOWELL-JOLLY BODIES FEW; HYPOCHROMASIA MODERATE; PLATELET ESTIMATE ADEQUATE; PLATELET MORPHOLOGY COMMENT NORMAL; RBC MORPHOLOGY COMMENT NORMAL
[2018-04-09] MEDS ORDERED: PANTOPRAZOLE SO40 MG PO (10:06)
[2018-04-09] MEDS ORDERED: PANTOPRAZOLE SOD 40 MG TABEC PO SCH (10:30)
[2018-04-09 10:35] VITALS: BP 154/67
--- NOTE | 2018-04-09 10:44 | NUR ---
CASE MANAGEMENT INITIAL ASSESSMENT Money Manager to bedside to discuss plan of care with patient/family. CM/SW role and care transitions discussed. Anticipated discharge plan discussed along with duration of care. CM/SW discussed patients right to make decisions in care. CM/SW work hours given. Patient lives: FRIEND Admit/Transfer: ER POA/Emergency contact: HERIBERTO ESPINOZA Current/Previous Home Health: HAD [facility] IN THE PAST AND WISHES TO RESUME SERVICES WITH THEM PRIOR TO DISCHARGE PCP/Follow-up Care: DR BENNIE PERDOMO Current/Previous DME: [employer] Other Services: NONE Employment Status: RETIRED Areas of Concerns: NONE Referral Needs: NONE Education Needs: F/U APPTS WITH PCP AND PULMONARY IMM/RODRIGUEZ given and signed (if applicable): IMM ON ADMIT Goal for discharge:DISCHARGE HOME SOON POSSIBLE CM/SW left business card at the bedside with contact information. Name and number was also written on the patients whiteboard. Patient verbalized understanding of discussion. CM will follow-up with ongoing discharge and transition of care needs.
[2018-04-09] MEDS: LOSARTAN POTASSIUM 25 MG TAB PO SCH (10:59)
[2018-04-09] MEDS: OYST-CAL-D 500MG TABLET PO SCH (10:59)
[2018-04-09] MEDS: BUPROPION HCL 100 MG TAB PO SCH ×2 (10:59→15:58)
[2018-04-09] MEDS: TORSEMIDE 10 MG TAB PO SCH (10:59)
[2018-04-09] MEDS: ESCITALOPRAM OXALATE 10 MG TAB PO SCH (10:59)
[2018-04-09] MEDS: NIFEDIPINE CR 30 MG TAB PO SCH (11:00)
[2018-04-09 11:45] VITALS: BP 159/67
[2018-04-09] MEDS: FUROSEMIDE INJ 10 MG/ML 2 ML VIAL IV PRN ×2 (12:53→17:05)
[2018-04-09] MEDS: HYDRALAZINE HCL 100 MG TABLET PO SCH (15:58)
--- NOTE | 2018-04-09 16:45 | NUR ---
2ND UNIT OF BLOOD FINISHED AT THIS TIME. NO ADVERSE REACTIONS NOTED.
[2018-04-09 16:50] VITALS: BP 146/63
--- NOTE | 2018-04-09 16:57 | NUR ---
REPORT CALLED TO RECEIVING NURSE; GOING TO ROOM 289.
--- NOTE | 2018-04-09 17:29 | NUR ---
DR. PERDOMO AT BEDSIDE, EXPLAINED POC. PT TRANSFERRED TO ROOM 289 WITH TELE BOX ON, IN STABLE CONDITION.
--- NOTE | 2018-04-09 17:31 | NUR ---
PATIENT ARRIVED TO ROOM 289. SHE IS AAOX3. FAMILY AT BEDSIDE. PATIENT AND FAMILY ORIENTED TO ROOM AND POLICIES. CALL LIGHT WITHIN REACH, BED IN THE LOWEST POSITION.
[2018-04-09 17:57] VITALS: BP 118/61
[2018-04-09 18:27] LABS: % IRON SATURATION 8 % (15-50); IRON 18 ug/dL (50-170); TOTAL IRON BINDING CAPACITY 218 ug/dL (261-478); TRANSFERRIN 156 mg/dL (180-382)
--- NOTE | 2018-04-09 18:47 | History and Physical ---
CHIEF COMPLAINT: Weakness and low blood pressure. HISTORY OF PRESENTING ILLNESS: This is Ms. Janae Kyle with a history of chronic anemia with chronic iron deficiency anemia, getting iron transfusion, and a history of hypertension and atrial fibrillation, was in her usual state of health until the patient started to feel weak about 2 days prior to admission. The patient's blood pressure dropped to a systolic of 70s, and patient was noted to be severely weak and severity persisted. The patient was brought to the emergency room yesterday, had some shortness of breath, too, and the patient was found to have anemia. Pneumonia was also present on CT scan. PAST MEDICAL HISTORY: History of hypertension, history of incontinence, history of reflux esophagitis, history of insomnia, history of depression, and a history of DVT, too, and a history of CVA in the past with moyamoya disease. MEDICATIONS SHE TAKES AT HOME: Atorvastatin 20 mg daily, bupropion 100 mg daily, calcium carbonate, vitamin D2 tablet daily, Lexapro 10 mg daily, hydralazine 100 mg twice a day, losartan 25 mg daily, Myrbetriq 25 mg daily, nifedipine 90 mg daily, pantoprazole 40 daily, Xarelto 15 mg daily, torsemide 20 mg and trazodone 50 mg at nighttime. SURGICAL HISTORY: History of cataract surgery and also a history of pericardial window, history of abdominal surgery and a history of vertebral artery surgery, too, for moyamoya disease. SOCIAL HISTORY: Positive smoking in the past, currently a nonsmoker. No ETOH. No IV drug abuse. PHYSICAL EXAMINATION VITAL SIGNS: Temperature is 98.9. Pulse of 70. Blood pressure is 146/63. Respiration of 21. Pulse oximetry 97% on 3 liters of oxygen. Patient was hypertensive on arrival and bradycardic, too. Currently in no acute distress. HEENT: Normocephalic, atraumatic. Pupils react to light and accommodation. CARDIOVASCULAR: S1 and S2 normal. RESPIRATORY: Decreased air entry into the lung bases. Positive for some few inspiratory wheezes. ABDOMEN: Nontender, nondistended. BACK: Normal. SKIN: Within normal limits. EXTREMITIES: 1+ pitting edema and chronic venous changes. NEUROLOGICAL: Alert and oriented x3 with no focal deficits noted. LABORATORY VALUES: Initial white count was 8.85, hemoglobin of 6.9, hematocrit 22.0, platelet count was 217. Neutrophil count 6.4. Chemistry shows a sodium of 142, potassium was 3.8, BUN was 45, creatinine of 2.50 and a calcium of 8.0. Troponins have been trended negative. CK was 234 and 204 respectively. The patient's BNP was 1955. MICROBIOLOGY: Blood cultures are pending, and patient has received 2 units of PRBCs in the day and her posttransfusion H&H is to be still noted. IMAGING STUDIES: Initial chest x-ray did show right lower pneumonia; and scattered bilateral likely infectious nodules, small right and trace left pleural effusion, prominent mediastinal lymph node likely reactive, those are the CT findings. IMPRESSION 1. Pneumonia. Patient is currently on Rocephin and azithromycin in renal doses. 2. Acute renal failure. I will put the patient on some gentle fluid resuscitation. 3. Hypertension. Gentle resuscitation and blood transfusion. 4. History of deep vein thrombosis. Will continue with the Xarelto, hold off on blood pressure medications at this time. PLAN: Panel will be done, and we will continue to monitor the patient on a regular basis. For further information, look at the chart. Will follow the patient tomorrow and repeat her electrolyte and creatinine levels and a CBC. Job#: [id number] EV
--- NOTE | 2018-04-09 19:23 | NUR ---
PT IS RESTING IN BED WITH DAUGHTER AT BEDSIDE. NO RESPIRATORY DISTRESS NOTED. BED IN THE LOWEST POSITION, LOCKED, AND CALL LIGHT WITHIN REACH. WILL CONTINUE TO MONITOR.
[2018-04-09 19:33] LABS: CREATINE KINASE MB 1.8 ng/mL (0-5.0)
--- NOTE | 2018-04-09 19:39 | NUR ---
REPORT GIVEN TO ONCOMING NURSE. PATIENT IS RESTING IN BED. NO ACUTE DISTRESS NOTED. DAUGHTER AT BEDSIDE. CALL LIGHT WITHIN REACH. BED IN THE LOWEST POSITION.
[2018-04-09 19:46] VITALS: BP 181/74
[2018-04-09] MEDS ORDERED: ATORVASTATIN 20 MG TAB PO SCH (21:00)
[2018-04-09] MEDS: ATORVASTATIN 40 MG TAB PO SCH (21:12)
[2018-04-09] MEDS: TRAZODONE HCL 50 MG TAB PO SCH (21:12)
[2018-04-10] VITALS (9 sets, daily range): BP systolic 145–196; BP diastolic 65–83
[2018-04-10] MEDS: IPRATROPIUM BROMIDE 0.02% 2.5 ML NEB NEB SCH ×4 (03:15→19:28)
[2018-04-10] MEDS: ALBUTEROL SULF 0.083% NEB SOLN 3 ML NEB NEB SCH ×5 (03:15→19:28)
[2018-04-10 05:26] LABS: BASOPHILS % 0.4 % (0.0-1.0); EOSINOPHILS # (AUTO) 0.3 (0.0-0.4); EOSINOPHILS % 2.4 % (0.0-6.0); HEMATOCRIT 31.9 % (34.2-44.1); HEMOGLOBIN 10.2 g/dL (12.0-16.0); LYMPHOCYTES # (AUTO) 0.5 (1.0-3.2); LYMPHOCYTES % 4.3 % (18.0-39.1); MEAN CORPUSCULAR HEMOGLOBIN 30.3 pg (28-32); MONOCYTES % 9.2 % (4.4-11.3); NEUTROPHILS # (AUTO) 9.2 (2.1-6.9); NEUTROPHILS % 82.5 % (38.7-80.0); PLATELET COUNT 245 x10e3/uL (140-360)
[2018-04-10 05:28] LABS: MEAN CORPUSCULAR VOLUME 94.7 fL (81-99); RED BLOOD COUNT 3.37 x10e6/uL (3.6-5.1)
[2018-04-10 06:05] LABS: ALBUMIN 2.8 g/dL (3.5-5.0); ALBUMIN/GLOBULIN RATIO 0.9 (0.8-2.0); ANION GAP 13.7 mmol/L (8-16); CALCIUM 8.6 mg/dL (8.4-10.2); CREATININE, SERUM 2.46 mg/dL (0.57-1.11); MAGNESIUM 1.8 MG/DL (1.3-2.1); POTASSIUM 3.7 mmol/L (3.5-5.1)
--- NOTE | 2018-04-10 07:09 | NUR ---
PER DR CONOR LOPEZ TO PUT IN A SPUTUM INDUCTION ORDER. WILL CONTINUE TO MONITOR.
--- NOTE | 2018-04-10 07:16 | NUR ---
RECEIVED PATIENT RESTING IN BED. NO ACUTE DISTRESS NOTED. DAUGHTER AT BEDSIDE. CALL LIGHT WITHIN REACH. BED IN THE LOWEST POSITION.
--- NOTE | 2018-04-10 07:36 | Progress Note ---
DATE: The patient is here for pneumonia and also blood loss anemia and hypoxia. Currently, the patient is confused. Has been confused all night long. No other complaints. Positive for some shortness of breath according to the partner in the room. OBJECTIVE VITAL SIGNS: Temperature is 99.3, pulse of 76, respirations of 22, blood pressure has been running high at 170/68, and pulse oximetry of 93%. HEENT: Normocephalic and atraumatic. Pupils are reactive to light and accommodation. CV: S1 and S2 normal. Regular rhythm. ABDOMEN: Nontender and nondistended. EXTREMITIES: No clubbing. No cyanosis. Trace edema. LABORATORY VALUES: White count is 11,000, hemoglobin is 10.2 up from 6.9 yesterday, hematocrit of 31.9. Neutrophil count 9.2. Chemistry: Sodium 143, potassium is 3.7, BUN is 40, creatinine of 2.46, and glucose is 163. MICROBIOLOGY: No growth in 24 hours on blood culture. ASSESSMENT 1. Pneumonia, right-sided. 2. Gyykd-gz-rgdixiu renal failure. 3. Hypertension. 4. Diabetes mellitus. 5. History of chronic anemia. PLAN: Continue to monitor the patient. The patient is on Rocephin and azithromycin. Will also do a pulmonary consult for pneumonia. Consult with Dr. Dent for her acute renal failure. The patient also has low iron. Iron was 18. TIBC of 218. Transferrin is 156 and percent saturation is 8. Transfuse iron. O2 support. Continue monitoring the patient and gentle hydration. Troponins have been trended to be negative. Further recommendations per clinical course. Will continue monitoring the patient along with the consultants. Job#: [id number] DUONG
[2018-04-10] MEDS: NON-FORMULARY MEDICATION (Mirabegron (Myrbetriq) 25 MG) PO SCH (08:37)
[2018-04-10] MEDS: PANTOPRAZOLE SOD 40 MG TABEC PO SCH (08:44)
[2018-04-10] MEDS: LOSARTAN POTASSIUM 25 MG TAB PO SCH (08:44)
[2018-04-10] MEDS: HYDRALAZINE HCL 100 MG TABLET PO SCH ×2 (08:44→16:55)
[2018-04-10] MEDS: TORSEMIDE 10 MG TAB PO SCH (08:44)
[2018-04-10] MEDS: BUPROPION HCL 100 MG TAB PO SCH ×2 (08:44→16:55)
[2018-04-10] MEDS: NIFEDIPINE CR 30 MG TAB PO SCH (08:44)
[2018-04-10] MEDS: OYST-CAL-D 500MG TABLET PO SCH (08:44)
[2018-04-10] MEDS: ESCITALOPRAM OXALATE 10 MG TAB PO SCH (08:44)
[2018-04-10] MEDS: AZITHROMYCIN 500MG/NS 250 ML 250 ML IV SCH (08:45)
[2018-04-10] MEDS ORDERED: NON-FORMULARY MEDICATION (Torsemide 20 MG) PO SCH (09:00)
[2018-04-10] MEDS ORDERED: NIFEDIPINE 90 MG PO SCH (09:00)
--- NOTE | 2018-04-10 10:31 | NUR ---
PAGED DR. FLOWER TO GET ORDER FOR STRAIGHT CATH TO COLLECT URINE SAMPLE FOR PATIENT.
--- NOTE | 2018-04-10 10:50 | Consultation ---
DATE OF CONSULTATION: PULMONARY CONSULTATION REASON FOR CONSULTATION: Shortness of breath. HPI: Ms. Kyle is a 67-year-old female. She is known to me from previous admission at [facility]. She presented to the emergency room with weakness and low blood pressure. Was found to have right lower lobe pneumonia. She was started on antibiotics. Also, showed left-sided effusion. She denies any complaints of chest pain. She is having shortness of breath and coughing. She smoked for 20+ years. Currently, does not smoke. She quit smoking 17 years ago. REVIEW OF SYSTEMS GENERAL: Denies any fever or chills. HEENT: Head: Denies any head trauma. ENT: Denies any earache. CV: Denies any chest pain. RESPIRATORY: Shortness of breath. GI: Denies any nausea or vomiting. The rest of the review systems are negative, except as in HPI. PAST MEDICAL HISTORY: Hypertension, esophagitis, depression, DVT, CVA in the past. PAST SURGICAL HISTORY: Cataract surgery, pericardial window, abdominal surgery. Has moyamoya disease per the records. FAMILY AND SOCIAL HISTORY: Previous smoker. Does not smoke anymore. Quit 17 years ago. No drug use. No alcohol use. PHYSICAL EXAMINATION VITAL SIGNS: Temperature 98.7, pulse of 82, blood pressure 196/83, respiratory rate of 18, O2 sat 92%. HEENT: Head is atraumatic and normocephalic. NECK: Supple. CHEST: Markedly reduced air entry and bronchial breath sounds in the right lower lobe. Left side is clear. HEART: S1 and S2 audible. ABDOMEN: Soft, nontender and nondistended. EXTREMITIES: No peal edema. NEUROLOGIC: Awake and alert. LABS: White count of 11,000, hemoglobin 10.2, and platelets 245,000. Chemistry: Sodium 143, potassium 3.7, creatinine 2.46. Creatinine was 1.5 [address] in 2017[address] CT: I reviewed the images showing right lower lobe consolidation and large right-sided effusion. INR is 1.1. ASSESSMENT AND PLAN: Ms. Kyle is a 67-year-old female with right lower lobe consolidation, likely pneumonia with right-sided pleural effusion, likely parapneumonic. PLAN 1. I will request thoracentesis for right-sided effusion. 2. IV antibiotics. Patient is on Rocephin and azithromycin, which will be continued. She lives at home. Likely, has community-acquired pneumonia. 3. Oxygen as needed to keep the O2 sat more than or equal to 92%. 4. Continue the patient on nebulizer treatment. Job#: [id number] RI
[2018-04-10 11:26] LABS: BILIRUBIN,URINE NEGATIVE (NEGATIVE); CLARITY,URINE HAZY (CLEAR); COLOR,URINE YELLOW (YELLOW); KETONES,URINE NEGATIVE (NEGATIVE); LEUKOCYTE ESTERASE ,URINE NEGATIVE (NEGATIVE); NITRITE,URINE NEGATIVE (NEGATIVE); PROTEIN,URINE DIPSTICK 2+ (NEGATIVE); URINE UROBILINOGEN 0.2 mg/dL (0.2 - 1)
[2018-04-10 11:29] LABS: BACTERIA,URINE RARE /HPF
[2018-04-10 11:30] LABS: AMORPHOUS SEDIMENT,URINE RARE (FEW); EPITHELIAL CELLS,URINE MODERATE /LPF
[2018-04-10 12:59] LABS: CREATININE,URINE RANDOM 47.43 mg/dL (47-110)
[2018-04-10 13:56] LABS: TOTAL PROTEIN, URINE 374.4 mg/dL (1-14)
[2018-04-10] MEDS: SODIUM CHLORIDE 0.9% 1000ML 1,000 ML IV SCH (14:00)
--- NOTE | 2018-04-10 16:13 | Diagnostic Imaging Report ---
Procedure: Ultrasound-guided right diagnostic and therapeutic thoracentesis clinching machine operator: Gonzalo Sin MD Pre-operative diagnosis: Moderate bilateral pleural effusions Post-operative diagnosis: Resolution of right sided pleural effusion status post thoracentesis. Sedation: Local (1% subcutaneous lidocaine) Estimated blood loss: Minimal Implants: None TECHNIQUE/FINDINGS: Informed consent was obtained from the patient and documented in the medical record. The patient was placed in the upright position. The right posterior chest was prepped and draped in standard sterile fashion. Initial ultrasound demonstrated moderate bilateral pleural effusions. The right pleural effusion was chosen to be targeted per the referring request. 1% lidocaine was infiltrated into the skin and subcutaneous tissues for local anesthesia. Then under continuous sonographic guidance, a 5 Fr catheter was advanced into the right pleural space. The catheter was advanced off the needle and connected to vacuum bottle with subsequent evacuation of 1100 cc of serous fluid. The catheter was removed and a sterile, occlusive dressing was applied. Sample was sent to the lab. The patient tolerated the procedure well. IMPRESSION: Moderate bilateral pleural effusions. Ultrasound-guided right diagnostic and therapeutic thoracentesis with removal of 1100 cc of serous fluid. Signed by: Dr. Gonzalo Sin MD on 04/10/2018 4:10 PM
--- NOTE | 2018-04-10 17:34 | Diagnostic Imaging Report ---
EXAM: Renal Ultrasound INDICATION: [place] COMPARISON: TECHNIQUE: Transverse and longitudinal images of the kidneys and bladder were obtained. FINDINGS: Right Kidney: Length: Measures 11.8 x 5.3 x 5.4 cm Appearance: Normal echogenicity. Collecting system: No hydronephrosis Stones: None Cyst/Mass: No evidence of solid mass. There is a simple appearing 3.2 cm anechoic right mid pole renal cyst. Left Kidney: Length: Measures 11.1 x 5.5 x 5.0 cm Appearance: Normal echogenicity. Collecting system: No hydronephrosis Stones: None Cyst/Mass: None Bladder: Unremarkable appearance. Bilateral ureteral jets are not visualized. IMPRESSION: No sonographic evidence of hydronephrosis or stone. Simple appearing right mid pole renal cyst. Signed by: Dr. Gonzalo Sin MD on 04/10/2018 5:31 PM
--- NOTE | 2018-04-10 18:00 | Diagnostic Imaging Report ---
EXAMINATION: CHEST XRAY POST PROCEDURE INDICATION: Status post thoracentesis. COMPARISON: Chest radiograph 04/08/[address] chest 04/08/2018. FINDINGS: TUBES and LINES: None. LUNGS: Improved mild patchy opacities at the right lung base. Persistent left retrocardiac opacity. There are mild perihilar and interstitial opacities. PLEURA: Status post interval right thoracentesis with resolution of right-sided pleural effusion. Persistent small left pleural effusion. No evidence of pneumothorax. HEART AND MEDIASTINUM: Mild enlargement of the cardiomediastinal silhouette. Atherosclerotic calcifications of the aortic arch. BONES AND SOFT TISSUES: No acute osseous lesion. Soft tissues are unremarkable. UPPER ABDOMEN: No free air under the diaphragm. IMPRESSION: Status post interval right thoracentesis with resolution of right-sided pleural effusion. No evidence of pneumothorax. Mild pulmonary interstitial edema and small left pleural effusion. Improved patchy right basilar opacities. Persistent left retrocardiac opacities. Findings could represent pneumonia or atelectasis in the appropriate clinical context. Signed by: Dr. Gonzalo Sin MD on 04/10/2018 5:56 PM
--- NOTE | 2018-04-10 19:25 | NUR ---
PT IS RESTING IN BED WITH DAUGHTER AT BEDSIDE. NO RESPIRATORY DISTRESS NOTED. BED IN THE LOWEST POSITION, LOCKED, BED ALARM ON, AND CALL LIGHT WITHIN REACH. WILL CONTINUE TO MONITOR.
--- NOTE | 2018-04-10 19:34 | NUR ---
REPORT GIVEN TO ONCOMING NURSE. PATIENT IS RESTING IN BED. NO S/S OF DISTRESS NOTED. DAUGHTER AT BEDSIDE. CALL LIGHT WITHIN REACH. BED IN THE LOWEST POSITION.
[2018-04-10 19:37] LABS: BODY FLUID APPEARANCE CLEAR; BODY FLUID COLOR STRAW; BODY FLUID TYPE PLEURAL
[2018-04-10 20:27] LABS: WBC,BODY FLUID 28 cells/uL
[2018-04-10 20:28] LABS: RBC,BODY FLUID 630 cells/uL
[2018-04-10] MEDS: ATORVASTATIN 40 MG TAB PO SCH (21:23)
[2018-04-10] MEDS: CEFTRIAXONE SOD 1 GM/NS 50 ML 50 ML IV SCH (21:23)
[2018-04-10] MEDS: TRAZODONE HCL 50 MG TAB PO SCH (21:23)
[2018-04-10 21:58] LABS: LYMPHOCYTES,BODY FLUID 48 %; MONO/MACROPHG,BODY FLUID 24 %; NEUTROPHILS,BODY FLUID 28 %
--- NOTE | 2018-04-10 23:08 | NUR ---
PT IS CONFUSE. PT TOOK OF ALL TELE LEADS AND PULL OUT IV. BED ALARM ON, BED IN LOWEST POSITION, LOCKED, AND CALL LIGHT WITHIN REACH. WILL CONTINUE TO MONITOR.
[2018-04-11] VITALS (8 sets, daily range): BP systolic 133–181; BP diastolic 63–92
[2018-04-11] MEDS: IPRATROPIUM BROMIDE 0.02% 2.5 ML NEB NEB SCH ×4 (00:14→19:04)
[2018-04-11] MEDS: ALBUTEROL SULF 0.083% NEB SOLN 3 ML NEB NEB SCH ×6 (00:14→23:05)
[2018-04-11 05:18] LABS: BASOPHILS % 0.4 % (0.0-1.0); EOSINOPHILS # (AUTO) 0.2 (0.0-0.4); EOSINOPHILS % 2.7 % (0.0-6.0); HEMATOCRIT 29.5 % (34.2-44.1); HEMOGLOBIN 9.7 g/dL (12.0-16.0); LYMPHOCYTES # (AUTO) 0.3 (1.0-3.2); LYMPHOCYTES % 4.4 % (18.0-39.1); MEAN CORPUSCULAR HEMOGLOBIN 30.6 pg (28-32); MEAN CORPUSCULAR HGB CONC 32.9 g/dL (31-35); MEAN CORPUSCULAR VOLUME 93.1 fL (81-99); MONOCYTES # (AUTO) 0.6 (0.2-0.8); MONOCYTES % 8.7 % (4.4-11.3); PLATELET COUNT 226 x10e3/uL (140-360); RED BLOOD COUNT 3.17 x10e6/uL (3.6-5.1); RED CELL DISTRIBUTION WIDTH 14.9 % (11.7-14.4)
[2018-04-11 05:47] LABS: ALBUMIN 2.5 g/dL (3.5-5.0); ANION GAP 11.5 mmol/L (8-16); CALCIUM 8.4 mg/dL (8.4-10.2); CREATININE, SERUM 2.12 mg/dL (0.57-1.11); POTASSIUM 3.5 mmol/L (3.5-5.1)
--- NOTE | 2018-04-11 07:35 | NUR ---
PT IN BED SLEEPING NO DISTRESS NOTED.
[2018-04-11] MEDS: NIFEDIPINE CR 30 MG TAB PO SCH (08:45)
[2018-04-11] MEDS: HYDRALAZINE HCL 100 MG TABLET PO SCH ×2 (08:45→16:40)
[2018-04-11] MEDS: PANTOPRAZOLE SOD 40 MG TABEC PO SCH (08:45)
[2018-04-11] MEDS: ESCITALOPRAM OXALATE 10 MG TAB PO SCH (08:45)
[2018-04-11] MEDS: AZITHROMYCIN 500MG/NS 250 ML 250 ML IV SCH (08:45)
[2018-04-11] MEDS: BUPROPION HCL 100 MG TAB PO SCH ×2 (08:45→16:40)
[2018-04-11] MEDS: OYST-CAL-D 500MG TABLET PO SCH (08:45)
[2018-04-11] MEDS: NON-FORMULARY MEDICATION (Mirabegron (Myrbetriq) 25 MG) PO SCH (09:00)
[2018-04-11] MEDS: ACETAMINOPHEN 325 MG TAB PO PRN ×2 (12:48→17:52)
[2018-04-11 15:38] LABS: ANION GAP 12.6 mmol/L (8-16); CALCIUM 8.3 mg/dL (8.4-10.2); CREATININE, SERUM 2.16 mg/dL (0.57-1.11); POTASSIUM 3.6 mmol/L (3.5-5.1)
--- NOTE | 2018-04-11 17:41 | NUR ---
PT IN BED SLEEPING NO DISTRESS NOTED, DENIES PAIN.TEMP 100.4 TYLENOL GIVEN
--- NOTE | 2018-04-11 19:00 | NUR ---
patient recieved awake, alert, lying quietly in bed. vss. no c/o pain noted. ivf continue to infuse without difficulty. pm assessment complete. patient instructed to call for assistance when needed.
[2018-04-11 20:01] LABS: CREATININE,URINE RANDOM 102.51 mg/dL (47-110)
[2018-04-11] MEDS: ATORVASTATIN 40 MG TAB PO SCH (20:51)
[2018-04-11] MEDS: TRAZODONE HCL 50 MG TAB PO SCH (20:51)
[2018-04-11] MEDS: SODIUM CHLORIDE 0.9% 1000ML 1,000 ML IV SCH (21:27)
[2018-04-11] MEDS: CEFTRIAXONE SOD 1 GM/NS 50 ML 50 ML IV SCH (22:13)
--- NOTE | 2018-04-11 22:54 | Progress Note ---
DATE: The patient is here for pneumonia, acute renal failure, and hypoxia. Last night, patient did have excessive delirium, was combative. Patient is better today, more coherent and feeling better. No complaints from her partner either. PHYSICAL EXAMINATION VITAL SIGNS: Temperature is 100.4, pulse of 83, respirations of 22, and pulse oximetry of 94%. HEENT: Normocephalic and atraumatic. Has a nasal cannula. CV: S1 and S2 normal. Regular rate and rhythm. LUNGS: Positive for crackles and rhonchi on the right side. ABDOMEN: Nontender and nondistended. EXTREMITIES: No clubbing. No cyanosis. No edema. LABORATORY VALUES: Sodium is 138, potassium of 3.6, BUN 35, and creatinine of 2.16. Hematology: White count is 7.28, hemoglobin 9.7, hematocrit 29.5, platelet count 226,000, and neutrophil count 83. Patient is status post right thoracentesis. ASSESSMENT/PLAN 1. Right lower lobe consolidation with pleural effusion, status post thoracentesis with effusion. Intravenous antibiotics, Zithromax and Rocephin. Oxygen support for acute renal failure. Nebulizer treatment. 2. Acute renal failure on chronic renal failure, stable. Patient's medication has been reviewed. Patient hydralazine 100 mg twice a day, nifedipine 90 mg daily, and furosemide 20 mg IV diuretics p.r.n. for shortness of breath. Continue current medications. Further recommendations per clinical course. We will continue to monitor the patient. Still awaiting Dr. Dent's consult, nephrology. Job#: [id number]
--- NOTE | 2018-04-11 23:26 | Consultation ---
DATE OF CONSULTATION: April 11, 2018 HISTORY: This is a 67-year-old lady with underlying history of hyperlipidemia, history of prior coronary artery disease status post PCI and stent, history of GA, history of CVA, history of prior brain surgery, history of type 2 diabetes, hypertension, history of chronic kidney disease apparently but never seen a transmitter engineer in charge. She is arousable, does not really give much history. Family by bedside who is helping with history. Patient follows commands to some extent, shakes her head, no to any complaints. Unable to get review of systems due to medical condition. Renal consult for management of acute kidney injury. LABS: Show hemoglobin 9.7, was relatively anemic, hemoglobin of 6.9 earlier. With a potassium 3.6, creatinine 2.1, bicarb 20. Hemoglobin 8.3. Total protein 5.1, globulin 2.6. Currently lying supine. ALLERGIES: PORCINE-CONTAINING PRODUCTS, POVIDONE-IODINE SOAP. CURRENT MEDICATIONS: Please see MAR for details. In particular, she is on albuterol and Atrovent nebulizer, ceftriaxone, azithromycin, IV normal saline 75 mL an hour. She is on Tylenol, calcium carbonate daily, Wellbutrin 100 mg b.i.d. She is on Lexapro 10 mg daily, nifedipine 90 mg daily, hydralazine 100 mg p.o. b.i.d., pantoprazole 40 mg daily, trazodone 25 mg at bedtime, mirabegron (Myrbetriq) 25 mg p.o. daily. SOCIAL HISTORY: Does not smoke or drink. FAMILY HISTORY: Significant for hypertension. PHYSICAL EXAMINATION: GENERAL: Awake, alert, lying supine, in no apparent distress. VITAL SIGNS: Blood pressure 174/77, pulse rate 101, afebrile, respiratory rate 17. HEENT: Head and neck: Cornea clear. Oral mucosa moist. LUNGS: Supine exam, but relatively poor gas exchange with decreased air entry, left lower third more than right. Scattered rhonchi, scattered rales. HEART: S1 and S2 audible. ABDOMEN: Otherwise soft, nontender. LOWER EXTREMITIES: Shows no edema. IMPRESSION AND PLAN: Jssba-gr-dbpswta kidney failure, most likely diabetic nephropathy, chronic kidney disease with an acute component. Plan on working up, discussed with family. Will need follow up as an outpatient. Has underlying hypertension, multiple comorbidities. Medications reviewed. Discussed with patient's family. She is on mirabegron for overactive bladder. The kidney ultrasound earlier showed unremarkable appearance. She has 11.8, 11.1 cm kidneys bilaterally on kidney ultrasound. Overall prognosis appears poor. Blood cultures so far are negative. Please see orders. Thank you. Job#: [id number]
[2018-04-12] VITALS (7 sets, daily range): BP systolic 126–160; BP diastolic 56–83
[2018-04-12] MEDS: ALBUTEROL SULF 0.083% NEB SOLN 3 ML NEB NEB SCH ×6 (02:25→23:41)
[2018-04-12] MEDS: IPRATROPIUM BROMIDE 0.02% 2.5 ML NEB NEB SCH ×5 (02:25→23:41)
[2018-04-12 06:16] LABS: ALBUMIN 2.3 g/dL (3.5-5.0); ALBUMIN/GLOBULIN RATIO 0.9 (0.8-2.0); ANION GAP 13.4 mmol/L (8-16); CALCIUM 8.4 mg/dL (8.4-10.2); CREATININE, SERUM 2.54 mg/dL (0.57-1.11); POTASSIUM 3.4 mmol/L (3.5-5.1)
--- NOTE | 2018-04-12 07:27 | Progress Note ---
DATE: Patient is here for pneumonia, community-acquired, and also acute renal failure. Patient is currently better. No delirium noted yesterday. Patient slept well without any complaints. OBJECTIVE VITAL SIGNS: Temperature is 97, afebrile, pulse of 89, respirations of 20, blood pressure is 137/61, pulse oximetry 93%. HEENT: Normocephalic and atraumatic. Pupils are reactive to light and accommodation. CV: S1 and S2 normal. Regular rate and rhythm. LUNGS: Positive for rhonchi on the right side. EXTREMITIES: No clubbing. Trace edema. LABORATORY VALUES: White count was 7.28 down from 11, hemoglobin of 9.7, hematocrit of 29.5. Neutrophil count is 83. Today's chemistries shows sodium of 139, potassium of 3.4, BUN of 38, creatinine of 2.54. Urine negative. ASSESSMENT 1. Pneumonia with transudative pleural effusion: Continue with antibiotics of Rocephin and Zithromax. Will continue with that at renal dosage. 2. Acute renal failure: Dr. Dent has been consulted. Will continue monitoring the patient. 3. Anemia, iron deficiency: Will transfuse Venofer today. 4. Delirium secondary to sepsis and encephalopathy: Will continue with antibiotics and fluids. 5. Hypertension: Continue monitoring the patient and also antihypertensives. Will also give her albuterol and Atrovent treatments. PLAN: Continue monitoring the patient along with the consultants. Further recommendations per clinical course. Job#: [id number] DUONG
--- NOTE | 2018-04-12 07:35 | NUR ---
PT UP IN CHAIR ,DENIES PAIN NO DISTRESS NTOED,O2 2L NC IN PLACE,NO SOB NOTED
[2018-04-12] MEDS: OYST-CAL-D 500MG TABLET PO SCH (08:45)
[2018-04-12] MEDS: PANTOPRAZOLE SOD 40 MG TABEC PO SCH (08:45)
[2018-04-12] MEDS: BUPROPION HCL 100 MG TAB PO SCH ×2 (08:45→17:05)
[2018-04-12] MEDS: ESCITALOPRAM OXALATE 10 MG TAB PO SCH (08:45)
[2018-04-12] MEDS: NIFEDIPINE CR 30 MG TAB PO SCH (08:45)
[2018-04-12] MEDS: AZITHROMYCIN 500MG/NS 250 ML 250 ML IV SCH (08:45)
[2018-04-12] MEDS: HYDRALAZINE HCL 100 MG TABLET PO SCH ×2 (08:45→17:05)
[2018-04-12] MEDS: NON-FORMULARY MEDICATION (Mirabegron (Myrbetriq) 25 MG) PO SCH (09:00)
--- NOTE | 2018-04-12 11:38 | Diagnostic Imaging Report ---
Examination: Single AP view of the chest. COMPARISON: AP chest 04/10/2018 INDICATION: Hypotension, pneumonia IMPRESSION: 1. Lines and Tubes: None 2. Lungs are slightly hypoinflated. Interval development of airspace opacity predominantly in the right lower lung and to a lesser degree the right upper lung, suggesting pneumonia, in the appropriate clinical setting and less likely alveolar edema. Worsening of left retrocardiac opacity, with partial obscuration of the left hemidiaphragm, which may represent atelectasis or pneumonia. 3. Stable enlargement of the cardiac silhouette. Central pulmonary venous congestion. Atherosclerotic calcification of the aortic arch. 4. No acute bony abnormalities. Signed by: Dr. Ajith Bravo M.D. on 04/12/2018 11:35 AM
[2018-04-12] MEDS: IRON SUCROSE 100 MG in SODIUM CHLORIDE 0.9% 100 ML 100 ML IV SCH (12:09)
[2018-04-12] MEDS ORDERED: POTASSIUM CHLORIDE 20 MEQ TAB CR PO STA (15:14)
--- NOTE | 2018-04-12 16:29 | NUR ---
Nutrition Screen Note RD Recommendation for Physician: -Continue ADA diet as ordered Plan of Care: RD following, monitoring for tolerance and adequacy Nutrition reason for involvement: LOS Primary Diagnose(s): 1. Pneumonia 2. Acute renal failure 3. Anemia, iron deficiency 4. Delirium secondary to sepsis and encephalopathy PMH: anemia, HTN, Afib, incontinence, reflux, insomnia, depression, DVT, CVA, DM Ht: 62in Wt: 172.25lb BMI: 31.5kg/m2 IBW: 110lb RD Assessment: (04/12) Chart reviewed. Labs and meds reviewed. 67yo F, who is admitted for weakness. Visited pt in the room. Pt reports improved appetite today. No GI complains noted. LBM 04/10. Pt denies any chewing or swallowing difficulty. No recent weight loss reported. 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 Will continue to monitor and follow. Current Diet: ADA diet Malnutrition Evaluation (04/12/2018) The patient does not meet criteria for a specified degree of malnutrition at this time. Will re-evaluate at follow-up as appropriate. Diet Education Needs Assessment: Diet education not indicated. Nutrition Care Level: low Signed: Ольга Lagos, MS, RD, LD
--- NOTE | 2018-04-12 18:24 | NUR ---
PT UP IN RECLINER DENIES PAIN NO DISTRESS NOTED,
--- NOTE | 2018-04-12 19:00 | NUR ---
patient recieved awake, alert, lying quietly in bed. vss. no c/o pain noted. ivf continue to infuse without difficulty. pm assessment complete. daughter noted at the bedside. patient/daughter instructed to call for assistance when needed.
[2018-04-12] MEDS: ATORVASTATIN 40 MG TAB PO SCH (20:53)
[2018-04-12] MEDS: TRAZODONE HCL 50 MG TAB PO SCH (20:53)
[2018-04-12] MEDS: CEFTRIAXONE SOD 1 GM/NS 50 ML 50 ML IV SCH (21:34)
[2018-04-13] VITALS (8 sets, daily range): BP systolic 129–167; BP diastolic 60–80
--- NOTE | 2018-04-13 | NUR ---
patient appears to be resting quietly at this time. vss. no c/o pain noted. daughter remains at the bedside.
[2018-04-13] MEDS: SODIUM CHLORIDE 0.9% 1000ML 1,000 ML IV SCH (03:00)
[2018-04-13] MEDS: ALBUTEROL SULF 0.083% NEB SOLN 3 ML NEB NEB SCH ×6 (03:20→22:55)
[2018-04-13 05:50] LABS: BASOPHILS % 0.6 % (0.0-1.0); EOSINOPHILS # (AUTO) 0.3 (0.0-0.4); EOSINOPHILS % 5.1 % (0.0-6.0); HEMATOCRIT 28.4 % (34.2-44.1); LYMPHOCYTES # (AUTO) 0.4 (1.0-3.2); LYMPHOCYTES % 7.5 % (18.0-39.1); MEAN CORPUSCULAR HEMOGLOBIN 30.7 pg (28-32); MEAN CORPUSCULAR HGB CONC 31.7 g/dL (31-35); MEAN CORPUSCULAR VOLUME 96.9 fL (81-99); MONOCYTES # (AUTO) 0.7 (0.2-0.8); MONOCYTES % 11.9 % (4.4-11.3); PLATELET COUNT 212 x10e3/uL (140-360); RED BLOOD COUNT 2.93 x10e6/uL (3.6-5.1); RED CELL DISTRIBUTION WIDTH 14.7 % (11.7-14.4)
[2018-04-13 06:16] LABS: ALBUMIN 2.4 g/dL (3.5-5.0); ALBUMIN/GLOBULIN RATIO 0.9 (0.8-2.0); ANION GAP 14.9 mmol/L (8-16); CALCIUM 8.2 mg/dL (8.4-10.2); CREATININE, SERUM 2.72 mg/dL (0.57-1.11); POTASSIUM 3.9 mmol/L (3.5-5.1)
[2018-04-13] MEDS: IPRATROPIUM BROMIDE 0.02% 2.5 ML NEB NEB SCH ×3 (07:00→19:10)
--- NOTE | 2018-04-13 07:20 | NUR ---
PATIENT IS IN STABLE CONDITION WITH NO S/S OF RESPIRATORY DISTRESS. NO PAIN VOICED. IV FLUIDS INFUSING. SISTER PRESENT IN ROOM. CALL LIGHT IS WITHIN REACH, INSTRUCTED TO CALL FOR ASSISTANCE NEEDED.
--- NOTE | 2018-04-13 07:54 | Progress Note ---
DATE: Patient is here for pneumonia and acute renal failure. The patient complains of pain in the lower back, and also partner complains the patient was having some delirium last night. OBJECTIVE VITAL SIGNS: Currently afebrile. Temperature is 98.5, pulse 85, respirations 20, blood pressure 135/64, pulse oximetry 93%. HEENT: Normocephalic and atraumatic. Pupils are reactive to light and accommodation. LUNGS: Positive for rhonchi in the right lower lung field. Positive for crackles on that side, too. ABDOMEN: Nontender and nondistended. EXTREMITIES: No clubbing. No cyanosis. No edema. LABORATORY VALUES: Today's white count is 5.4, RBC 2.93, hemoglobin 9, hematocrit 29.4. Chemistries: Sodium 142, potassium 3.9, BUN 39, creatinine 1.7, EGFR 17. Glucose has been running 146. The patient's coags are normal at this time. ASSESSMENT 1. Pneumonia, probably community acquired. 2. The patient is status post thoracentesis of pleural effusion. 3. Acute renal failure on chronic renal failure. Continue to monitor the patient. The patient is on gentle hydration. 4. Delirium possibly secondary to sepsis and toxic encephalopathy. PLAN: Will continue to monitor the patient for diabetes and for hypertension. Will continue her home medications. Further recommendations per clinical course. We will continue to monitor the patient. Also check vitals and laboratory values on a daily basis. Job#: [id number]
[2018-04-13] MEDS: NON-FORMULARY MEDICATION (Mirabegron (Myrbetriq) 25 MG) PO SCH (08:57)
[2018-04-13] MEDS: HYDRALAZINE HCL 100 MG TABLET PO SCH ×2 (08:57→16:34)
[2018-04-13] MEDS: IRON SUCROSE 100 MG in SODIUM CHLORIDE 0.9% 100 ML 100 ML IV SCH (08:57)
--- NOTE | 2018-04-13 08:57 | NUR ---
IV IRON ADMINISTERED; PATIENT REFUSED AVE WENCESLAO.
[2018-04-13] MEDS: NIFEDIPINE CR 30 MG TAB PO SCH (08:58)
[2018-04-13] MEDS: PANTOPRAZOLE SOD 40 MG TABEC PO SCH (08:58)
[2018-04-13] MEDS: ESCITALOPRAM OXALATE 10 MG TAB PO SCH (08:58)
[2018-04-13] MEDS: OYST-CAL-D 500MG TABLET PO SCH (08:58)
[2018-04-13] MEDS: BUPROPION HCL 100 MG TAB PO SCH ×2 (08:58→16:34)
[2018-04-13] MEDS: AZITHROMYCIN 500MG/NS 250 ML 250 ML IV SCH (10:36)
--- NOTE | 2018-04-13 13:27 | Progress Note ---
DATE: April 13, 2018 More dyspnea. Chest x-ray showing possible fluid versus new infiltrates. Creatinine is up to 2.7. Blood pressure has been high. PHYSICAL EXAMINATION GENERAL: Slightly dyspneic. Nasal cannula in place. VITALS: Temperature is 97.8, pulse 97, blood pressure 167/67. CHEST: Bilateral scattered crackles. Minimal wheeze at the right base. EXTREMITIES: Trace edema. NEURO: Alert and appropriate. Speech is normal. CARDIAC: Normal heart tones. Rhythm sounds regular. Hemoglobin is 9. Serum CO2 is 18, potassium 3.9, creatinine is up to 2.7 from 2.5. It has been steadily climbing. BUN is 39. Chest x-ray is reviewed. Possible fluid overload. PLAN: Start IV Lasix. Discontinue IV fluids. Ongoing antibiotic treatment is noted. Check urine eosinophils also. Add p.o. sodium bicarbonate for metabolic acidosis. Will follow along. Job#: [id number] DUONG
[2018-04-13] MEDS: FUROSEMIDE INJ 10 MG/ML 2 ML VIAL IV SCH (16:34)
[2018-04-13] MEDS: SODIUM BICARBONATE 650 MG TAB PO SCH (16:34)
--- NOTE | 2018-04-13 19:06 | NUR ---
PATIENT IS IN STABLE CONDITION WITH NO S/S OF RESPIRATORY DISTRESS. NO PAIN VOICED. SISTER PRESENT IN ROOM. BED ALARM ON. CALL LIGHT IS WITHIN REACH, INSTRUCTED TO CALL FOR ASSISTANCE NEEDED. REPORT GIVEN TO ONCOMING NURSE.
[2018-04-13] MEDS: CEFTRIAXONE SOD 1 GM/NS 50 ML 50 ML IV SCH (21:39)
[2018-04-13] MEDS: TRAZODONE HCL 50 MG TAB PO SCH (21:39)
[2018-04-13] MEDS: ATORVASTATIN 40 MG TAB PO SCH (21:39)
[2018-04-14] VITALS (7 sets, daily range): BP systolic 137–176; BP diastolic 65–92
[2018-04-14] MEDS: IPRATROPIUM BROMIDE 0.02% 2.5 ML NEB NEB SCH ×4 (02:50→19:20)
[2018-04-14] MEDS: ALBUTEROL SULF 0.083% NEB SOLN 3 ML NEB NEB SCH ×7 (02:50→23:00)
[2018-04-14 06:00] LABS: CALCIUM 8.3 mg/dL (8.4-10.2); CREATININE, SERUM 2.56 mg/dL (0.57-1.11)
--- NOTE | 2018-04-14 07:39 | NUR ---
PATIENT IS IN STABLE CONDITION WITH NO S/S OF RESPIRATORY DISTRESS. NO PAIN VOICED. PATIENT SITTING IN THE CHAIR- FAMILY MEMBER NEAR PATIENT. O2 APPLIED. CALL LIGHT IS WITHIN REACH, INSTRUCTED TO CALL FOR ASSISTANCE NEEDED.
[2018-04-14] MEDS: IRON SUCROSE 100 MG in SODIUM CHLORIDE 0.9% 100 ML 100 ML IV SCH (08:58)
[2018-04-14] MEDS: FUROSEMIDE INJ 10 MG/ML 2 ML VIAL IV SCH ×2 (08:58→17:32)
[2018-04-14] MEDS: NON-FORMULARY MEDICATION (Mirabegron (Myrbetriq) 25 MG) PO SCH (08:58)
[2018-04-14] MEDS: SODIUM BICARBONATE 650 MG TAB PO SCH ×2 (08:59→17:32)
[2018-04-14] MEDS: BUPROPION HCL 100 MG TAB PO SCH ×2 (08:59→17:32)
[2018-04-14] MEDS: NIFEDIPINE CR 30 MG TAB PO SCH (08:59)
[2018-04-14] MEDS: ESCITALOPRAM OXALATE 10 MG TAB PO SCH (08:59)
[2018-04-14] MEDS: OYST-CAL-D 500MG TABLET PO SCH (08:59)
[2018-04-14] MEDS: PANTOPRAZOLE SOD 40 MG TABEC PO SCH (08:59)
[2018-04-14] MEDS: HYDRALAZINE HCL 100 MG TABLET PO SCH ×2 (08:59→17:32)
[2018-04-14] MEDS: AZITHROMYCIN 500MG/NS 250 ML 250 ML IV SCH (10:13)
--- NOTE | 2018-04-14 12:09 | Progress Note ---
DATE: 04.14.18 SUBJECTIVE: Having some confusion. Dyspnea still present, perhaps slightly better but that is not clear. OBJECTIVE GENERAL: Sitting up in bed, no distress. VITAL SIGNS: Temperature 97.9, pulse 109, blood pressure 176/79. NEURO: Cannot remember last night's events. CHEST: Faint crackles. EXTREMITIES: Trace edema. CARDIAC: Normal heart tones. Rhythm sounds regular. Intermittent tachycardia noted by staff. LABS: Sodium 144, K 4.0, serum CO2 of 18, creatinine 2.56, BUN 39. ASSESSMENT 1. Acute tubular necrosis. 2. Fluid overload. 3. Metabolic acidosis. PLAN: Continue p.o. bicarbonate. A.m. chemistries. Increase Lasix to 40 mg IV b.i.d. Underlying history of CKD stage 3 is noted with prior baseline creatinines ranging from 1.5 to 2. Job#: [id number] LPA MTDD
--- NOTE | 2018-04-14 19:19 | NUR ---
PATIENT IS IN STABLE CONDITION WITH NO S/S OF RESPIRATORY DISTRESS. NO PAIN VOICED. PFAMILY MEMBER PRESENT IN ROOM. 02 APPLIED. CALL LIGHT IS WITHIN REACH, INSTRUCTED TO CALL FOR ASSISTANCE NEEDED. REPORT GIVEN TO ONCOMING NURSE.
--- NOTE | 2018-04-14 19:25 | NUR ---
RECEIVED PATIENT IN BED. ASSISTED IN REPOSITIONING. OXYGEN AT 2L/MIN.
[2018-04-14] MEDS: CEFTRIAXONE SOD 1 GM/NS 50 ML 50 ML IV SCH (21:35)
[2018-04-14] MEDS: TRAZODONE HCL 50 MG TAB PO SCH (21:35)
[2018-04-14] MEDS: ATORVASTATIN 40 MG TAB PO SCH (21:35)
[2018-04-15] VITALS (11 sets, daily range): BP systolic 126–190; BP diastolic 62–89
[2018-04-15] MEDS: IPRATROPIUM BROMIDE 0.02% 2.5 ML NEB NEB SCH ×5 (00:41→23:30)
[2018-04-15] MEDS: ALBUTEROL SULF 0.083% NEB SOLN 3 ML NEB NEB SCH ×6 (03:45→23:30)
[2018-04-15 06:27] LABS: ANION GAP 14.8 mmol/L (8-16); CALCIUM 8.2 mg/dL (8.4-10.2); CREATININE, SERUM 2.45 mg/dL (0.57-1.11); POTASSIUM 3.8 mmol/L (3.5-5.1)
--- NOTE | 2018-04-15 07:00 | NUR ---
PATIENT IS IN STABLE CONDITION WITH NO S/S OF RESPIRATORY DISTRESS. 02 APPLIED. PATIENT DENIES ANY PAIN. FAMILY MEMBER PRESENT IN ROOM. CALL LIGHT IS WITHIN REACH, PATIENT INSTRUCTED TO CALL FOR ASSISTANCE NEEDED
--- NOTE | 2018-04-15 07:00 | NUR ---
Report given to oncoming nurse.
[2018-04-15] MEDS: NON-FORMULARY MEDICATION (Mirabegron (Myrbetriq) 25 MG) PO SCH (08:06)
[2018-04-15] MEDS: BUPROPION HCL 100 MG TAB PO SCH ×2 (08:11→16:26)
[2018-04-15] MEDS: NIFEDIPINE CR 30 MG TAB PO SCH (08:11)
[2018-04-15] MEDS: ESCITALOPRAM OXALATE 10 MG TAB PO SCH (08:11)
[2018-04-15] MEDS: PANTOPRAZOLE SOD 40 MG TABEC PO SCH (08:11)
[2018-04-15] MEDS: HYDRALAZINE HCL 100 MG TABLET PO SCH ×2 (08:11→16:26)
[2018-04-15] MEDS: SODIUM BICARBONATE 650 MG TAB PO SCH ×2 (08:11→16:26)
[2018-04-15] MEDS: OYST-CAL-D 500MG TABLET PO SCH (08:11)
[2018-04-15] MEDS: FUROSEMIDE INJ 10 MG/ML 2 ML VIAL IV SCH ×2 (08:11→16:26)
--- NOTE | 2018-04-15 09:21 | Diagnostic Imaging Report ---
EXAMINATION: PA and lateral views of the chest. COMPARISON: Portable chest 04/12/2018 CLINICAL HISTORY: Status post thoracentesis on 04/10/2018 DISCUSSION: Lines/tubes: None. Lungs: The lungs are well-inflated. Bibasilar opacities right greater than left likely represent atelectasis. Pleura: Moderate right and small left pleural effusions. Heart and mediastinum: Enlarged cardiac silhouette. Central pulmonary venous congestion Bones and soft tissues: No acute bony abnormalities. IMPRESSION: Moderate right and small left pleural effusions with associated bibasilar atelectasis. 2. Enlarged cardiac silhouette with central pulmonary venous congestion. Signed by: Dr. Ajith Bravo M.D. on 04/15/2018 9:17 AM
[2018-04-15] MEDS: AZITHROMYCIN 500MG/NS 250 ML 250 ML IV SCH (09:48)
[2018-04-15] MEDS: IRON SUCROSE 100 MG in SODIUM CHLORIDE 0.9% 100 ML 100 ML IV SCH (12:22)
--- NOTE | 2018-04-15 14:34 | NUR ---
PATIENT AND HER FAMILY MEMBER ARE AMBULATING IN THE HALLWAY- PATIENT IS USING HER WALKER TO AMBULATE.
--- NOTE | 2018-04-15 19:17 | NUR ---
PATIENT IS IN STABLE CONDITION WITH NO S/S OF RESPIRATORY DISTRESS. NO PAIN VOICED. FAMILY MEMBER PRESENT IN ROOM. CALL LIGHT IS WITHIN REACH, INSTRUCTED TO CALL FOR ASSISTANCE NEEDED. REPORT GIVEN TO ONCOMING NURSE.
--- NOTE | 2018-04-15 19:20 | NUR ---
PATIENT IN BED, NO CONFUSION NOTED. NO COMPLAINTS
--- NOTE | 2018-04-15 19:47 | NUR ---
PAGED DR. PERDOMO REGARDING ROCEPHIN IV. WAITING FOR RESPONSE.
--- NOTE | 2018-04-15 19:49 | NUR ---
SPOKED WITH DR. PALMER TO CONTINUE ROCEPHIN FOR 7 MORE DAYS WITH SAME DOSAGE AND FREQUENCY.
--- NOTE | 2018-04-15 19:50 | NUR ---
DR CABELLO COVERING FOR DR. PERDOMO.
[2018-04-15] MEDS: CEFTRIAXONE SOD 1 GM/NS 50 ML 50 ML IV SCH (21:32)
[2018-04-15] MEDS: ATORVASTATIN 40 MG TAB PO SCH (21:32)
[2018-04-15] MEDS: TRAZODONE HCL 50 MG TAB PO SCH (21:32)
[2018-04-16] VITALS (7 sets, daily range): BP systolic 150–188; BP diastolic 70–90
[2018-04-16] MEDS: ALBUTEROL SULF 0.083% NEB SOLN 3 ML NEB NEB SCH ×6 (03:30→23:15)
--- NOTE | 2018-04-16 05:53 | Diagnostic Imaging Report ---
CHEST SINGLE (PORTABLE), 04/16/2018 7:35 AM Technique: CHEST SINGLE (PORTABLE) Comparison: 04/15/2018 Clinical history: Pneumonia Findings: See Impression Impression: 1. Lines/Tubes: None 2. Stable enlarged cardiomediastinal silhouette. 3. Persistent central vascular congestion, bibasilar opacities, and underlying pleural effusions. Signed by: Dr Shireen Boyer MD on 04/16/2018 5:50 AM
[2018-04-16 06:20] LABS: ANION GAP 13.5 mmol/L (8-16); CALCIUM 8.2 mg/dL (8.4-10.2); CREATININE, SERUM 2.23 mg/dL (0.57-1.11); POTASSIUM 3.5 mmol/L (3.5-5.1)
[2018-04-16] MEDS: IPRATROPIUM BROMIDE 0.02% 2.5 ML NEB NEB SCH ×3 (06:54→19:00)
--- NOTE | 2018-04-16 07:16 | NUR ---
REPORT GIVEN TO ONCOMING NURSE.
[2018-04-16 07:54] LABS: BASOPHILS % 0.4 % (0.0-1.0); EOSINOPHILS # (AUTO) 0.3 (0.0-0.4); EOSINOPHILS % 3.7 % (0.0-6.0); HEMATOCRIT 29.6 % (34.2-44.1); HEMOGLOBIN 9.4 g/dL (12.0-16.0); LYMPHOCYTES # (AUTO) 0.5 (1.0-3.2); LYMPHOCYTES % 6.8 % (18.0-39.1); MEAN CORPUSCULAR HEMOGLOBIN 30.5 pg (28-32); MEAN CORPUSCULAR HGB CONC 31.8 g/dL (31-35); MEAN CORPUSCULAR VOLUME 96.1 fL (81-99); MONOCYTES # (AUTO) 0.6 (0.2-0.8); MONOCYTES % 8.4 % (4.4-11.3); NEUTROPHILS % 79.9 % (38.7-80.0); PLATELET COUNT 242 x10e3/uL (140-360); RED BLOOD COUNT 3.08 x10e6/uL (3.6-5.1); RED CELL DISTRIBUTION WIDTH 14.4 % (11.7-14.4)
[2018-04-16] MEDS ORDERED: FUROSEMIDE INJ 10 MG/ML 2 ML VIAL IV SCH (09:00)
[2018-04-16] MEDS: NON-FORMULARY MEDICATION (Mirabegron (Myrbetriq) 25 MG) PO SCH (09:00)
[2018-04-16] MEDS: SODIUM BICARBONATE 650 MG TAB PO SCH ×2 (09:09→16:49)
[2018-04-16] MEDS: FUROSEMIDE INJ 10 MG/ML 4 ML VIAL IV SCH ×2 (09:09→16:49)
[2018-04-16] MEDS: HYDRALAZINE HCL 100 MG TABLET PO SCH ×2 (09:09→16:49)
[2018-04-16] MEDS: IRON SUCROSE 100 MG in SODIUM CHLORIDE 0.9% 100 ML 100 ML IV SCH (09:09)
[2018-04-16] MEDS: OYST-CAL-D 500MG TABLET PO SCH (09:09)
[2018-04-16] MEDS: NIFEDIPINE CR 30 MG TAB PO SCH (09:09)
[2018-04-16] MEDS: ESCITALOPRAM OXALATE 10 MG TAB PO SCH (09:09)
[2018-04-16] MEDS: PANTOPRAZOLE SOD 40 MG TABEC PO SCH (09:09)
[2018-04-16] MEDS: BUPROPION HCL 100 MG TAB PO SCH ×2 (09:10→16:49)
[2018-04-16] MEDS ORDERED: SODIUM CHLORIDE 0.9% 50ML 50 ML ONE (09:13)
--- NOTE | 2018-04-16 09:15 | NUR ---
Pt received resting in chair with daughter at bedside. Alert and oriented x3 with lower extremities edema +3. No SOB or discomfort noted or voiced. Oriented to staff and surroundings. Encouraged to press call enriquez if help needed. Call enriquez within reach. All meds given as ordered. Will monitor
--- NOTE | 2018-04-16 10:04 | Progress Note ---
DATE: April 16, 2018 Feels much better. She is more lucid. Breathing is improved. OBJECTIVE VITALS: Temperature is 97.4, blood pressure 179/72, pulse 88. CHEST: Minimal crackles, now much improved. EXTREMITIES: Trace edema. NEURO: More alert and appropriate. Speech is normal. LABS: Creatinine is down to 2.2, BUN of 35, serum CO2 up to 23. ASSESSMENT 1. Acute tubular necrosis. 2. Acidosis. 3. Fluid overload. 4. History of baseline creatinine of 1.5 to 2 mg percent, probably chronic kidney disease, stage 3. 5. Chronic kidney disease from nephrosclerosis. 6. Mild hypocalcemia. PLAN: Continue IV Lasix. Continue p.o. bicarbonate. A.m. chemistries. Keep salt and fluid restricted. Will follow along. No emergent need for dialysis. Job#: [id number] [place] MTDD
--- NOTE | 2018-04-16 16:33 | Diagnostic Imaging Report ---
Bilateral chest ultrasound History: Evaluate for pleural effusion. Comparison: Chest radiograph: 04/16/2018. Technique/findings: Limited bilateral chest ultrasound was performed to evaluate for pleural effusion. This demonstrated moderate bilateral pleural effusions, right greater than right. IMPRESSION: Moderate bilateral pleural effusions, right greater than left. Signed by: Dr. Gonzalo Sin MD on 04/16/2018 2:29 PM
--- NOTE | 2018-04-16 18:37 | NUR ---
Pt resting comfortably in bed. Call enriquez within reach. Will endorse to next shift
--- NOTE | 2018-04-16 19:58 | NUR ---
RECEIVED PT IN BED AOX3 SITTING ON THE CHAIR ..FAMILY AT THE BEDSIDE .DENIES PAIN . NO SOB NOTED CALL LIGHT WITH REACH .CONTINUE TO MONITOR
[2018-04-16] MEDS: ATORVASTATIN 40 MG TAB PO SCH (21:14)
[2018-04-16] MEDS: TRAZODONE HCL 50 MG TAB PO SCH (21:14)
--- NOTE | 2018-04-16 22:17 | Progress Note ---
DATE: Patient is here for pneumonia. Currently, the patient is more alert and oriented compared to 2 days ago and talking and is able to ambulate without any problems. OBJECTIVE VITAL SIGNS: Temperature is 96.0, pulse of 83, respirations of 20, blood pressure 168/88, pulse oximetry 97% on 2 L of nasal cannula. GENERAL: Patient is alert and oriented x3. HEENT: Normocephalic and atraumatic. Pupils reactive to light and accommodation. LUNGS: Positive for crackles in the right lung base. Good air entry. ABDOMEN: Nontender and nondistended. EXTREMITIES: No clubbing. Positive for trace edema. ASSESSMENT 1. Right lower lobe consolidation with pleural effusion, status post thoracentesis with effusion. Intravenous antibiotics, Zithromax and Rocephin. Continue with the same. Oxygen for support. 2. Acute renal failure. We will monitor the patient's renal function. Currently, the patient is on Lasix. She is on Lasix IV 80 mg twice a day. We will continue the same. Patient is also on sodium bicarb. For her pneumonia, she is on ipratropium and albuterol treatments q.6 h. Patient is also getting iron for iron deficiency anemia. Her cardiovascular medications remain the same. Further recommendation per clinical course. Possible discharge early. We will see what increase in the diuretics and diuresing her will do with their crackles in the lower base. Further recommendation per clinical course. We will continue to monitor the patient. Job#: [id number]
[2018-04-16] MEDS: CEFTRIAXONE SOD 1 GM/NS 50 ML 50 ML IV SCH (22:30)
[2018-04-17] VITALS (7 sets, daily range): BP systolic 149–186; BP diastolic 65–84
[2018-04-17] MEDS: IPRATROPIUM BROMIDE 0.02% 2.5 ML NEB NEB SCH ×3 (03:22→11:00)
[2018-04-17] MEDS: ALBUTEROL SULF 0.083% NEB SOLN 3 ML NEB NEB SCH ×4 (03:22→15:00)
--- NOTE | 2018-04-17 06:06 | NUR ---
PT RESTED DURING THE NIGHT .DENIES PAIN PT DAUGHTER AT THE BEDSIDE
[2018-04-17 06:31] LABS: ANION GAP 13.5 mmol/L (8-16); CALCIUM 8.4 mg/dL (8.4-10.2); CREATININE, SERUM 2.08 mg/dL (0.57-1.11); POTASSIUM 3.5 mmol/L (3.5-5.1)
--- NOTE | 2018-04-17 07:10 | NUR ---
REPORT GIVEN TO THE ONCOMING NURSE .
--- NOTE | 2018-04-17 07:22 | Progress Note ---
DATE: April 17, 2018 This is a 67-year-old female that comes in with acute pneumonia and acute renal failure. The patient is currently doing well. No delirium last night. Slept well. No complaints. The patient is breathing well on 2 L of oxygen. MEDICATIONS: Atorvastatin, albuterol sulfate and Atrovent treatments, bupropion, ceftriaxone, Lexapro, furosemide 80 mg IV twice a day, hydralazine, ipratropium bromide, nifedipine, Pantoprazole, sodium bicarbonate, and trazodone. OBJECTIVE VITAL SIGNS: Temperature is 96.6, afebrile for the last 48 hours, respirations 18, blood pressure is 154/80, pulse oximetry 97% on 2 L of oxygen. HEENT: Normocephalic and atraumatic. Pupils are reactive to light and accommodation. CV: S1 and S2 normal. Regular rate and rhythm. ABDOMEN: Nontender and nondistended. LUNGS: Positive for a few crackles at the right lung base. EXTREMITIES: No clubbing. Positive for 1+ edema. LABORATORY VALUES: Chemistry shows sodium of 143, potassium of 3.5, BUN of 24, and creatinine of 2.08. Glucose is 180. MICROBIOLOGY: Blood cultures no growth. Body fluid from paracentesis is negative too. ASSESSMENT 1. Right lower lobe consolidation with pleural effusion: Status post thoracentesis. The patient is on Rocephin, O2 support. The patient's consolidation seems to be getting better. 2. Acute renal failure: The patient has been started on intravenous Lasix 80 mg twice a day. Seems to be doing better with edema. At this time, a need for thoracentesis is not warranted. Also, the patient is on sodium bicarb and continue with fluid restriction at this time. PLAN: Continue with antibiotics. Consultants to see the patient today. Possible discharge today or tomorrow. Further recommendations per clinical course. Job#: [id number] [place]
[2018-04-17] MEDS ORDERED: SODIUM CHLORIDE 0.9% 50ML 50 ML ONE (08:22)
[2018-04-17] MEDS: NON-FORMULARY MEDICATION (Mirabegron (Myrbetriq) 25 MG) PO SCH (08:28)
[2018-04-17] MEDS: ESCITALOPRAM OXALATE 10 MG TAB PO SCH (08:28)
[2018-04-17] MEDS: IRON SUCROSE 100 MG in SODIUM CHLORIDE 0.9% 100 ML 100 ML IV SCH (08:28)
[2018-04-17] MEDS: OYST-CAL-D 500MG TABLET PO SCH (08:28)
[2018-04-17] MEDS: FUROSEMIDE INJ 10 MG/ML 4 ML VIAL IV SCH ×2 (08:28→16:23)
[2018-04-17] MEDS: HYDRALAZINE HCL 100 MG TABLET PO SCH ×2 (08:28→16:23)
[2018-04-17] MEDS: PANTOPRAZOLE SOD 40 MG TABEC PO SCH (08:29)
[2018-04-17] MEDS: BUPROPION HCL 100 MG TAB PO SCH ×2 (08:29→16:23)
[2018-04-17] MEDS: SODIUM BICARBONATE 650 MG TAB PO SCH ×2 (08:29→16:23)
[2018-04-17] MEDS: NIFEDIPINE CR 30 MG TAB PO SCH (08:29)
--- NOTE | 2018-04-17 08:30 | NUR ---
Pt received resting in bed. All meds given as ordered. Call enriquez within reach. Pt for Thoracentesis today. Will monitor
--- NOTE | 2018-04-17 13:23 | Progress Note ---
DATE: April 17, 2018 NEPHROLOGY PROGRESS NOTE SUBJECTIVE: Breathing has improved. Chest x-ray was still showing some fluid overload yesterday, as well as pleural effusions that may be drained. OBJECTIVE VITAL SIGNS: Temperature 98.1, pulse 80, blood pressure 149/55. I's and O's output has not been measured. CHEST: Still some faint crackles. CARDIAC: Normal heart tones. Rhythm sounds regular. EXTREMITIES: Trace edema. ASSESSMENT 1. Acute tubular necrosis. 2. Fluid overload. 3. History of chronic kidney disease. Baseline creatinine between 1.5 and 2. 4. Anemia is now stable. 5. Satisfactory electrolytes. PLAN: Continue IV Lasix and labs. No emergent need for dialysis. Continue p.o. bicarbonate for the metabolic acidosis, which is now better controlled. Sincerely, Job#: [id number] [place]
--- NOTE | 2018-04-17 14:15 | NUR ---
800ML removed from right lung. Emotional support given. Will follow up
--- NOTE | 2018-04-17 15:45 | Diagnostic Imaging Report ---
Date and Time: 04/17/2018 Procedure: Right thoracentesis radial drill operator: Dr. Wright Pre-operative diagnosis: Pleural effusion Post-operative diagnosis: Pleural effusion Conscious Sedation: None The patient's heart rate and pulse oximetry were continuously monitored by the interventional radiology nurse. Blood pressure was monitored at 5 minute intervals. Additional Medications: Lidocaine 1% for local anesthesia Estimated blood loss: Minimal Blood products administered: None Specimens: 800 cc straw-colored fluid Implants: None Condition at completion: Stable Disposition: Returned to floor DISCUSSION: Informed consent was obtained and documented in the medical record after discussion of risks and benefits. Patient was placed in the seated position on the sonographic table. The right posterior chest wall was prepped and draped in the standard sterile fashion. A suitable percutaneous approach to the moderate right pleural effusion was identified and 1% lidocaine was infiltrated into the overlying skin and subcutaneous tissues for local anesthesia. Then under continuous sonographic guidance a 5 [place] Yueh needle catheter was advanced into the pleural space. The catheter was advanced off the needle and connected to vacuum bottle with evacuation of 800 cc straw-colored fluid. Sonographic evaluation confirmed essentially complete evacuation of the pleural effusion. The catheter was then removed and a sterile occlusive dressing was applied. The patient tolerated the procedure well without immediate complication. FINDINGS: Moderate right pleural effusion. IMPRESSION: Successful ultrasound-guided right thoracentesis with removal of 800 cc straw-colored fluid. Signed by: Dr. Kwame Wright M.D. on 04/17/2018 3:41 PM
--- NOTE | 2018-04-17 15:45 | Diagnostic Imaging Report ---
Date and Time: 04/17/2018 Procedure: Right thoracentesis ribbing machine operator: Dr. Wright Pre-operative diagnosis: Pleural effusion Post-operative diagnosis: Pleural effusion Conscious Sedation: None The patient's heart rate and pulse oximetry were continuously monitored by the interventional radiology nurse. Blood pressure was monitored at 5 minute intervals. Additional Medications: Lidocaine 1% for local anesthesia Estimated blood loss: Minimal Blood products administered: None Specimens: 800 cc straw-colored fluid Implants: None Condition at completion: Stable Disposition: Returned to floor DISCUSSION: Informed consent was obtained and documented in the medical record after discussion of risks and benefits. Patient was placed in the seated position on the sonographic table. The right posterior chest wall was prepped and draped in the standard sterile fashion. A suitable percutaneous approach to the moderate right pleural effusion was identified and 1% lidocaine was infiltrated into the overlying skin and subcutaneous tissues for local anesthesia. Then under continuous sonographic guidance a 5 [place] Yueh needle catheter was advanced into the pleural space. The catheter was advanced off the needle and connected to vacuum bottle with evacuation of 800 cc straw-colored fluid. Sonographic evaluation confirmed essentially complete evacuation of the pleural effusion. The catheter was then removed and a sterile occlusive dressing was applied. The patient tolerated the procedure well without immediate complication. FINDINGS: Moderate right pleural effusion. IMPRESSION: Successful ultrasound-guided right thoracentesis with removal of 800 cc straw-colored fluid. Signed by: Dr. Kwame Wright M.D. on 04/17/2018 3:41 PM
--- NOTE | 2018-04-17 17:19 | NUR ---
Pt and daughter given discharge instructions regarding meds, diet, activities, and follow up with PCP. Pt verbalized understanding of teaching. Left floor in wheelchair to private car
== END 2018-04-17 17:20 | disposition home or self-care (01) | DRG 871 ==
LOC: ER 18:06 → ERHOLD 23:55 → MED/SURG3 04-09 17:32
PROVIDERS: ADMIT Family Medicine; ATTEND Family Medicine
PROC: 30243N1 Transfusion of Nonautologous Red Blood Cells into Central Vein, Percutaneous Approach (ICD-10-PCS; 2018-04-09)
PROC: 0W993ZX Drainage of Right Pleural Cavity, Percutaneous Approach, Diagnostic (ICD-10-PCS; 2018-04-10)
PROC: 0W993ZZ Drainage of Right Pleural Cavity, Percutaneous Approach (ICD-10-PCS; principal; 2018-04-17)
DX: A41.9 Sepsis, unspecified organism (principal); J18.9 Pneumonia, unspecified organism; N17.0 Acute kidney failure with tubular necrosis; I13.0 Hypertensive heart and chronic kidney disease with heart failure and stage 1 through stage 4 chronic kidney disease, or unspecified chronic kidney disease; N18.4 Chronic kidney disease, stage 4 (severe); J91.8 Pleural effusion in other conditions classified elsewhere; E87.2 Acidosis; Z86.718 Personal history of other venous thrombosis and embolism; Z79.01 Long term (current) use of anticoagulants; Z86.73 Personal history of transient ischemic attack (TIA), and cerebral infarction without residual deficits; E11.22 Type 2 diabetes mellitus with diabetic chronic kidney disease; I50.9 Heart failure, unspecified; Z79.4 Long term (current) use of insulin; D64.9 Anemia, unspecified; E83.51 Hypocalcemia; Z87.891 Personal history of nicotine dependence; D50.9 Iron deficiency anemia, unspecified; R65.20 Severe sepsis without septic shock
CPT/HCPCS: 32555; 36415; 71045; 71046; 71250; 74470; 76604; 76770; 80048; 80053; 81001; 82550; 82553; 82570; 82948; 83540; 83605; 83615; 83735; 83880; 84156; 84157; 84466; 84484; 85025; 85610; 85730; 86850; 86900; 86920; 87040; 87070; 87205; 87400; 88112; 89051; 93005; 94640; 99284; J0456; J0696; J1756; J1940; J7030; J7050; P9016

== ENCOUNTER 2018-04-28 20:38 | Inpatient (IN) | payer MEDICARE, BC ==
[~2018-04-28] VITALS: Ht 154.9 cm; Wt 77.7 kg
[~2018-04-28 20:38] MED LIST changes: +BUPROPION HCL100 MG PO; +MYRBETRIQ25 MG PO; +PANTOPRAZOLE SO40 MG PO
[2018-04-28] MEDS ORDERED: NICARDIPINE 20MG/200ML PREMIX 200 ML ONE ×2 (20:43)
--- NOTE | 2018-04-28 21:11 | Diagnostic Imaging Report ---
EXAMINATION: Head CT without contrast. HISTORY:Left-sided paralysis. COMPARISON:CT brain from 03/31/2017. TECHNIQUE: Multidetector axial images were obtained from the foramen magnum to the vertex without contrast. The images were reconstructed using brain and bone algorithms. Thin section brain images were reformatted into coronal and sagittal planes. Dose modulation, iterative reconstruction, and/or weight based adjustment of the mA/kV was utilized to reduce the radiation dose to as low as reasonably achievable. Intravenous contrast: None IMAGE QUALITY: Suboptimal evaluation of skull base and posterior fossa structures due to streak artifacts. FINDINGS: Skull/scalp: Expected postoperative changes from prior right pterional craniotomy. Parenchyma: Unchanged cortical/subcortical based chronic encephalomalacia in right frontal opercular region that extends to involve the right middle and inferior frontal gyri, anterior and superior aspect of right temporal lobe, right insula with unchanged punctate calcification in right frontal wilson radiata and compensated tree exvacuodilatation of frontal horn of right lateral ventricle with associated regional volume loss. This may represent a sequel a from prior trauma and/or surgery. Nonspecific bilateral frontoparietal patchy white matter hypodensity are likely related to small vessel ischemic changes. No acute hemorrhage, mass or acute major vascular territorial infarct. Arteries: No density suggestive of thrombosis. Dural sinuses: No abnormal density suggestive of thrombosis. Ventricles: Unchanged exvacuodilatation of right frontal horn of lateral ventricle. No acute hydrocephalus. Extra-axial spaces: No abnormal density. Brain volume: Moderate generalized cerebral volume loss. Craniocervical junction: No mass, Chiari malformation, or basilar invagination. Sella: Unchanged diffuse enlargement of the pituitary gland with superior convex margin, approximately measures 11 mm in maximum craniocaudad dimension, may represent possible underlying pituitary adenoma versus hyperplasia. Paranasal/mastoid sinuses: Imaged portions unremarkable. IMPRESSION: 1. No acute intracranial abnormality, particularly no acute hemorrhage, mass or acute major vascular territorial infarct. 2. No change since CT head from 03/31/2017. Chronic findings: 1. Unchanged chronic encephalomalacia in right frontal temporal region with overlying right pterional craniotomy, possibly a sequel of prior surgery and/or trauma. 2. Unchanged enlarged pituitary gland as detailed above, can be followed up with dedicated MRI of the brain with and without contrast per sella protocol, if previous workup has not been done. 3. Mild supratentorial white matter microvascular ischemic changes. 4. Moderate generalized cerebral volume loss. Signed by: Dr. Estefani Gillette M.D. on 04/28/2018 9:08 PM
--- NOTE | 2018-04-28 21:20 | NUR ---
bp 204/70. cardene increased to 5mg/hr
[2018-04-28 21:25] LABS: PROTHROMBIN TIME 14.1 seconds (11.9-14.5)
[2018-04-28 21:26] LABS: PARTIAL THROMBOPLASTIN TIME 28.6 seconds (23.8-35.5)
[2018-04-28 21:35] LABS: ALBUMIN/GLOBULIN RATIO 1.2 (0.8-2.0); ANION GAP 14.6 mmol/L (8-16); CALCIUM 8.8 mg/dL (8.4-10.2); CREATININE, SERUM 2.17 mg/dL (0.57-1.11); POTASSIUM 3.6 mmol/L (3.5-5.1)
[2018-04-28 21:42] LABS: CREATINE KINASE MB 4.3 ng/mL (0-5.0)
[2018-04-28] MEDS ORDERED: ASPIRIN 81 MG CHEW TAB PO ONE (22:00)
--- NOTE | 2018-04-28 22:00 | NUR ---
pt incontinenet. 16fr zavala inserted to collect ua per md request. 150cc clear yellow urine return noted. catheter removed per md request after bladder emptied. diaper applied.
[2018-04-28 22:05] LABS: AMPHETAMINES SCREEN,URINE NEGATIVE (NEGATIVE); BENZODIAZEPINES SCREEN,URINE NEGATIVE (NEGATIVE); CLARITY,URINE CLEAR (CLEAR); COLOR,URINE STRAW (YELLOW); KETONES,URINE NEGATIVE (NEGATIVE); LEUKOCYTE ESTERASE ,URINE NEGATIVE (NEGATIVE); NITRITE,URINE NEGATIVE (NEGATIVE); PHENCYCLIDINE SCREEN,URINE NEGATIVE (NEGATIVE); PROTEIN,URINE DIPSTICK 3+ (NEGATIVE); URINE UROBILINOGEN 0.2 mg/dL (0.2 - 1)
[2018-04-28 22:06] LABS: BILIRUBIN,URINE NEGATIVE (NEGATIVE)
--- NOTE | 2018-04-28 22:07 | NUR ---
bp 156/73. cardene decreased to 2.5mg/hr.
--- NOTE | 2018-04-28 22:41 | NUR ---
bp 157/99. cardene turned off per md request.
--- NOTE | 2018-04-28 23:10 | NUR ---
bp 189/70. md aware. md states to continue to hold cardene.
[2018-04-28 23:42] LABS: BASOPHILS % 0.8 % (0.0-1.0); EOSINOPHILS # (AUTO) 0.5 (0.0-0.4); EOSINOPHILS % 10.7 % (0.0-6.0); HEMATOCRIT 30.5 % (34.2-44.1); HEMOGLOBIN 10.8 g/dL (12.0-16.0); LYMPHOCYTES # (AUTO) 0.7 (1.0-3.2); LYMPHOCYTES % 13.3 % (18.0-39.1); MEAN CORPUSCULAR HEMOGLOBIN 31.8 pg (28-32); MEAN CORPUSCULAR HGB CONC 35.4 g/dL (31-35); MEAN CORPUSCULAR VOLUME 89.7 fL (81-99); MONOCYTES # (AUTO) 0.6 (0.2-0.8); MONOCYTES % 11.3 % (4.4-11.3); NEUTROPHILS # (AUTO) 3.2 (2.1-6.9); NEUTROPHILS % 63.7 % (38.7-80.0); PLATELET COUNT 201 x10e3/uL (140-360)
[2018-04-28 23:45] VITALS: BP 163/121
[2018-04-29] VITALS (12 sets, daily range): BP systolic 136–207; BP diastolic 53–121
[2018-04-29] MEDS: HYDRALAZINE HCL 20 MG/ML VIAL IV PRN ×2 (01:07→05:12)
[2018-04-29 04:36] LABS: BASOPHILS % 0.9 % (0.0-1.0); EOSINOPHILS # (AUTO) 0.4 (0.0-0.4); EOSINOPHILS % 9.7 % (0.0-6.0); HEMATOCRIT 26.3 % (34.2-44.1); HEMOGLOBIN 9.6 g/dL (12.0-16.0); LYMPHOCYTES # (AUTO) 0.6 (1.0-3.2); LYMPHOCYTES % 12.4 % (18.0-39.1); MEAN CORPUSCULAR HEMOGLOBIN 32.5 pg (28-32); MEAN CORPUSCULAR HGB CONC 36.5 g/dL (31-35); MEAN CORPUSCULAR VOLUME 89.2 fL (81-99); MONOCYTES # (AUTO) 0.5 (0.2-0.8); MONOCYTES % 9.9 % (4.4-11.3); NEUTROPHILS % 66.9 % (38.7-80.0); PLATELET COUNT 156 x10e3/uL (140-360); RED BLOOD COUNT 2.95 x10e6/uL (3.6-5.1)
[2018-04-29 04:54] LABS: ALBUMIN 2.5 g/dL (3.5-5.0); ALBUMIN/GLOBULIN RATIO 1.1 (0.8-2.0); CALCIUM 8.2 mg/dL (8.4-10.2); CREATININE, SERUM 1.99 mg/dL (0.57-1.11)
[2018-04-29 05:15] LABS: CREATINE KINASE MB 3.2 ng/mL (0-5.0)
[2018-04-29] MEDS: LOSARTAN POTASSIUM 25 MG TAB PO SCH ×2 (06:38→09:23)
[2018-04-29] MEDS: TORSEMIDE 10 MG TAB PO SCH (06:38)
[2018-04-29 08:42] LABS: CHOL/HDL RATIO 3.4 (3.0-3.6)
[2018-04-29] MEDS ORDERED: NIFEDIPINE 90 MG PO SCH (09:00)
[2018-04-29] MEDS ORDERED: NON-FORMULARY MEDICATION (Torsemide 20 MG) PO SCH (09:00)
[2018-04-29] MEDS: NIFEDIPINE CR 30 MG TAB PO SCH (09:22)
[2018-04-29] MEDS: HYDRALAZINE HCL 100 MG TABLET PO SCH ×2 (09:22→17:49)
[2018-04-29] MEDS ORDERED: POTASSIUM CHLORIDE 20MEQ/15ML UDC PO NR (12:45)
[2018-04-29] MEDS ORDERED: BISACODYL 10 MG SUPP PR NR (12:45)
[2018-04-29] MEDS ORDERED: ACETAMINOPHEN 325 MG TAB PO PRN (13:00)
[2018-04-29] MEDS ORDERED: ONDANSETRON HCL 4 MG ORAL DISINTEGRATING TAB PO PRN (13:00)
[2018-04-29] MEDS ORDERED: BISACODYL 10 MG SUPP PR ONE (13:27)
--- NOTE | 2018-04-29 13:33 | NUR ---
Pt used walker to try to get into bed by self, found leaning over on bed speaking on phone with daughter, crying. Pt stated that she was stretching her back. When asked why staff were not notified, pt stated, "I don't know." Pt placed in chair, instructed to call staff when trying to get up for any reason. Pt informed that she will be able to take more Tylenol for back pain in [address] chair alarm when alarm is found (only pads found in clean U)
--- NOTE | 2018-04-29 13:54 | NUR ---
MD Garcia at , states that he spoke to MD Castro
[2018-04-29 16:11] LABS: CREATINE KINASE MB 3.5 ng/mL (0-5.0)
--- NOTE | 2018-04-29 16:42 | Consultation ---
DATE OF CONSULTATION: April 29, 2018 NEUROLOGY CONSULT NOTE HISTORY OF PRESENT ILLNESS: Ms. 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 Ms. Kyle has very little memory of the afternoon of April 28, 2018. According to her sister, when she left her home at approximately 1645, the patient was in her usual state of health. When the sister return to the house some time between 1800 and 1830, the patient endorsed blurred vision. Her sister noted a right gaze preference/deviation, slurred speech, and confusion/disorientation. The patient's sister does not report a worsening facial droop, new or worsening paresis, numbness, gait or balance disturbance. Ms. Kyle was immediately brought to the emergency center at [facility] for further evaluation. Upon arrival in the emergency center, the patient was afebrile with a blood pressure of 227/98 mmHg and pulse of 79 beats per minute. Due to the presence of encephalopathy, a detailed neurological examination could not be performed. A CT of the brain without contrast was performed while the patient was in the emergency center. There was no evidence of recent large territorial ischemia or hemorrhage. However, unchanged chronic encephalomalacia in the right frontal temporal region was once again noted. While in the emergency center, the patient was placed on an infusion of nicardipine to lower her blood pressure to the 170s to 180 systolic. Ms. Kyle was then transferred to the intensive care unit for further evaluation and treatment of her symptoms. As stated above, the patient has experienced multiple prior strokes secondary to moyamoya. Her only had prominent deficits are moderate left central facial weakness and mild left hand and arm weakness. REVIEW OF SYSTEMS: Nausea, dry heaves, confusion, blurred vision, right gaze deviation/preference, dysarthria, left central facial weakness (chronic), left arm weakness (chronic), mild diffuse headache. Otherwise, the 12-point review of systems is negative. PAST MEDICAL HISTORY: Hypertension, hyperlipidemia, prior history of diabetes mellitus, gastroesophageal reflux disease, mixed depression/anxiety disorder, multiple prior strokes with deficits as per the history of present illness, moyamoya, anemia. PAST SURGICAL HISTORY: Cerebral artery bypass, graft, pericardiocentesis, removal of fluid from around the lungs x4. PAST HOSPITALIZATIONS: Surgeries/procedures as listed, multiple prior transient ischemic attacks and strokes, hypotension. FAMILY MEDICAL HISTORY: Hypertension, diabetes mellitus, heart disease, dementia. SOCIAL HISTORY: Ms. Kyle is single. She is retired. The patient does report prior history of tobacco use, but quit smoking cigarettes approximately 19 years ago. The patient does endorse occasional alcohol use. She does not report current or prior recreational drug use. HOME MEDICATIONS: Atorvastatin 40 mg by mouth at bedtime daily, bupropion 100 mg by mouth twice daily, calcium/D2 one tablet by mouth daily, Lexapro 10 mg by mouth daily, hydralazine 100 mg by mouth twice daily, losartan 25 mg by mouth daily, Myrbetriq 25 mg by mouth daily, Procardia XL 90 mg by mouth daily, Protonix 40 mg by mouth daily, torsemide 20 mg by mouth daily, trazodone 25 mg by mouth at bedtime as needed for insomnia, vitamin D 50,000 units by mouth daily. ALLERGIES: POVIDONE/IODINE SOAP. NO KNOWN ALLERGIES TO LATEX. NO KNOWN ALLERGIES TO IODINE OR OTHER CONTRAST MATERIALS. PHYSICAL EXAMINATION VITAL SIGNS: Height 61 inches, weight 174 pounds, BMI 32.9 kg per meter squared. Blood pressure 143/61 mmHg, pulse 76 beats per minute, respiratory rate 16 breaths per minute, oxygen saturation 100% on room air. GENERAL: The patient is awake and alert. Does not appear distressed. Obese. HEENT: Normocephalic, atraumatic. Pupils are surgical. Moist mucous membranes. NECK: Supple. No appreciable thyromegaly. No appreciable carotid bruits. CARDIOVASCULAR: S1, S2. Regular rate and rhythm. No murmurs, rubs, or gallops. RESPIRATORY: Clear to auscultation bilaterally. No wheezes, rhonchi, or rales. EXTREMITIES: The skin is warm and dry. No clubbing, cyanosis, or edema. The posterior tibial and dorsalis pedis pulses are 2+ and symmetric. SKIN: No rashes or lesions. NEUROLOGIC Memory/Attention: The patient is awake and alert, oriented to person, place, time, and situation. Cranial Nerves: Cranial nerve I - Not tested. Cranial nerve II, III, IV, and - Pupils are surgical. Extraocular movements are intact. No nystagmus. No gaze preference or deviation is noted. Cranial nerve V - Sensation to light touch and pinprick is intact in the bilateral V1 through V3 distributions. Strength of the temporalis and masseter muscles is within normal limits. Cranial nerve VII - The face is asymmetric on the left as are all facial movements. There is moderate central left facial weakness noted. Cranial nerve VIII - Hearing is diminished to finger rub on the right. Cranial nerve IX, X - the soft palates elevates equally and symmetrically. Cranial nerve XI - Normal strength of the bilateral sternocleidomastoid and trapezius muscles. Cranial nerve XII - The tongue protrudes midline and moves symmetrically from side to side. Strength: Bulk is normal. Strength is 5/5 in the bilateral deltoids, biceps, triceps, wrist flexors and extensors, finger flexors and extensors, intrinsic hand muscles, hip flexors, knee flexors and extensors, ankle dorsiflexion and plantar flexion, and intrinsic foot muscles except as follows: The left finger extensors are 4/5. The left finger flexors are 4+/5. Tone is mildly increased in the left arm. DTRs: Deep tendon reflexes are 2+ and symmetric at the triceps, biceps, brachioradialis, patellas. Deep reflexes are absent and symmetric at the Achilles. Plantar responses are flexor bilaterally. Sensation: Sensation is intact to light touch and pinprick in both arms and both legs. Gait: Deferred. Speech: Spontaneous speech is normal without appreciable dysarthria or aphasia. Repetition is intact. Involuntary Movements: None. Pronator Drift: None. LABORATORY DATA: The most recent comprehensive metabolic panel is significant for sodium of 146, potassium of 3.0, chloride of 110, creatinine of 1.99, estimated GFR of 25, glucose of 72, calcium of 8.2, total protein of 4.7, albumin of 2.5, globulin of 2.2. Ammonia 53. Cardiac enzymes are negative x2. Hemoglobin A1c 5.4. Total cholesterol 146, triglycerides 92, LDL cholesterol 85, HDL cholesterol 43. The CBC with differential and platelets reveals a white blood cell count of 4.53 with a left shift with 66.9% neutrophils, 12.4% lymphocytes, 9.9% monocytes, 9.7% eosinophils, and 0.9% basophils. The hemoglobin and hematocrit are 9.6 and 26.3, respectively. The platelet count is 156. The coagulation profile is within normal limits. A urinalysis was significant for a pH of 8, 3+ protein, 1+ blood, 11 to 20 red blood cells, 6 to 10 white blood cells. A urine drug screen was negative. DIAGNOSTIC STUDIES 1. Electrocardiogram on April 28, 2018: Normal sinus rhythm at 84 beats per minute. Left atrial enlargement. 2. CT of the brain without contrast on April 28, 2018: On my review, there is no evidence of recent large territorial ischemia, hemorrhage, mass, or mass effect. There is chronic encephalomalacia in the right frontal temporal region with overlying right pterional craniotomy, sequelae of prior surgery. There is diffuse cerebral atrophy with compensatory dilatation of the ventricles, more than expected for the patient's age. There findings compatible with [id number] chronic small vessel ischemic disease. 3. Echocardiogram on April 29, 2018: Ejection fraction 60%. Concentric left ventricular hypertrophy. Left atrial enlargement. Mild tricuspid regurgitation. Trace pericardial effusion. A pleural effusion is present. 4. Bilateral carotid artery ultrasound with Doppler on April 29, 2018: There is atherosclerosis without hemodynamically significant stenosis at the bilateral common carotid arteries, the left carotid bulb, and the left internal carotid artery. The right internal carotid artery is tortuous. Flow is antegrade in the bilateral vertebral arteries. ASSESSMENT AND PLAN: Ms. Kyle is a 67-year-old right hand dominant woman with past medical history significant for hypertension, hyperlipidemia, multiple prior strokes secondary to moyamoya with residual left moderate central facial weakness and mild left arm weakness, admitted to [facility] on April 28, 2018 with right gaze preference/deviation, encephalopathy, and hypertensive emergency. Both the gaze deviation and encephalopathy gradually improved once the patient was placed on a continuous infusion of nicardipine and her blood pressure was gradually decreased. At present, the only focal deficits on the patient's neurological examination are moderate central left facial weakness and mild weakness of the left finger flexors and extensors, both of which are chronic. The patient's laboratory data and other diagnostic studies have been reviewed and are documented above. In my opinion, Ms. Kyle' right gaze deviation and encephalopathy were symptoms of hypertensive emergency resulting in recrudescence of prior deficits. This diagnosis is supported by the fact the aforementioned symptoms gradually improved as the patient's blood pressure was slowly lowered. Ms. Kyle' blood pressure should be gradually normalized over the next 2 to 3 days. Her goal blood pressure prior to discharge is less than 140/90 mm Hg. Thank you for this consultation. I will continue to follow the patient while she remains in the hospital. TIME SPENT: 70 minutes. Job#: [id number] AKU MTDD
[2018-04-29] MEDS: DOCUSATE SODIUM 100 MG CAP PO SCH (17:49)
--- NOTE | 2018-04-29 17:49 | Consultation ---
DATE OF CONSULTATION: CARDIOLOGY CONSULTATION ATTENDING PHYSICIAN: Dr. Gabe Yañez. Thank you so much for asking me to see this nice lady again in consultation. HISTORY OF PRESENT ILLNESS: Ms. Kyle is a very complex 67-year-old woman who presented to the emergency room overnight with a complaint of visual difficulties and finding of blood pressure greater than 200/100. Patient reports she had this problem during the day on the and when her daughter came home and checks on her, she found that she has visual findings of eyes dysconjugate gaze and brought to the emergency room. PAST MEDICAL HISTORY: Very complex with previously diagnosed severe hypertension. She has longstanding type 2 diabetes. She had a coronary stent placed in the obtuse marginal in 2001, known hyperlipidemia. 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 MEDICATIONS: Her recent home medications have been; 1. Escitalopram 20 mg daily. 2. Atorvastatin 40 mg daily. 3. Nifedipine ER 90 mg daily. 4. Torsemide 20 mg daily. 5. Protonix 40 mg daily. 6. Iron 325 mg daily. 7. Trazodone 50 mg at bedtime. 8. Hydralazine 100 mg twice a day and had added metoprolol succinate 50 mg on February 27, 2018, which is the last time I saw her. She generally was hospitalized for pneumonia at [facility] earlier in April 2018. PHYSICAL EXAMINATION GENERAL: At this time shows a pleasant woman, who is alert and conversant. VITAL SIGNS: Blood pressure is 160/90. HEENT: Unremarkable. There is a slight left facial droop. Examination of the head, eyes, ears, nose, and throat is otherwise unremarkable. NECK: No bruits. THORAX: Heart sounds S1, S2 are equal. No murmurs. LUNGS: Clear. ABDOMEN: Protuberant. EXTREMITIES: No cyanosis, clubbing, or edema. ASSESSMENT 1. Hypertensive crisis, improving. 2. Transient ischemic attack. 3. Hyperlipidemia. 4. Type 2 adult-onset diabetes. 5. Coronary artery disease without symptoms. 6. Previous pericarditis, treated previously with pericardial window. PLAN: Agree with medical management and adjustment of blood pressure medications. I have already reviewed her echocardiogram, which shows significant left ventricular hypertrophy and good systolic function. Her carotids show no significant disease at this time. We will follow her closely with you. Thank you for asking me to see her in consultation. Job#: [id number] FELICE
[2018-04-30] VITALS (9 sets, daily range): BP systolic 114–171; BP diastolic 56–78
--- NOTE | 2018-04-30 02:26 | History and Physical ---
CHIEF COMPLAINT: Patient comes in with confusion and also with vertigo. HISTORY OF PRESENTING ILLNESS: This is Ms. Janae Kyle, who was recently discharged from the hospital with history of pneumonia and history of hypertension and CKD, was in her usual state of health until the morning of admission. The patient was noticed to have a right lateral gaze, which stayed fixated. Patient did complain of some diplopia, but no facial droop or any kind of weakness. The patient was rushed to the hospital, admitted for CVA. Patient also had apparent confusion and discussed with the patient. Patient is aware of all surroundings and all things that happened at that point of time. PAST MEDICAL HISTORY: History of hypertension, history of hyperlipidemia, history of transient AFib in the past, history of depression, history of chronic kidney disease, and history of insomnia. MEDICATIONS: Medications she takes at home are; 1. Atorvastatin 20 mg. 2. Ibuprofen 100 mg twice a day. 3. Calcium with D twice daily. 4. Hydralazine 100 mg twice a day. 5. Citalopram 10 mg daily. 6. Losartan 25 mg daily. 7. Myrbetriq for incontinence 25 mg daily. 8. Nifedipine 90 mg daily. 9. Pantoprazole 40 mg daily. 10. Torsemide 20 mg daily. 11. Trazodone 50 mg daily. 12. Vitamin D 50,000 units on weekly basis. PAST SURGICAL HISTORY: Include abdominal surgery in the past. She also had a pericardial window for pericarditis at [place], also history of cataract surgery in 2017, history of brain surgery for Moyamoya disease. Also, the patient has a history of CVA in the past, has been seen by neurologist. SOCIAL HISTORY: No ETOH. No IV drug abuse. History of smoking in the past, otherwise noncontributory. Lives with partner and good social well being. REVIEW OF SYSTEMS: Negative for chest pain or shortness of breath. No nausea, vomiting, or diarrhea. No constipation or rectal bleeding. No hematochezia. No hematemesis. Positive for blurry vision. Positive for diplopia. No paresthesias. No hyperesthesias. No tingling noted. PHYSICAL EXAMINATION VITAL SIGNS: Temperature is 97.1, pulse of 81, respirations 14, blood pressure is 163/59, trending between 160s to 190s and diastolic of 60s to 80s. HEENT: Normocephalic, atraumatic. Pupils are reactive to light and accommodation. There is no facial droop noted at this time. CVS: S1, S2 normal. Regular rate and rhythm. ABDOMEN: Nontender, nondistended. EXTREMITIES: No clubbing, no cyanosis and/or no edema. NEUROLOGIC: Cranial nerves are normal. Motor and sensory examination is essentially within normal limits. LABORATORY VALUES: White count is 4.53, hemoglobin of 10.8, trending down at 9.6, hematocrit is 30.5, right now 26.3. ASSESSMENT 1. Possible cerebrovascular accident or transient ischemic attack. A consult with Dr. Castro has been called. 2. Hypertension with hypertensive crisis. We will start on medications. Patient was on Cardene drip. We will restart her medications and increase her medications. 3. History of chronic kidney disease. We will continue monitoring the patient. 4. Anemia of chronic kidney disease. PLAN: To do MRI of the brain and MRA of the cervical spine. Consult with Dr. Castro. Control her blood pressure and further recommendations per clinical course. We will continue monitoring the patient along with consultants. Job#: [id number] FELICE
[2018-04-30 04:53] LABS: BASOPHILS % 0.5 % (0.0-1.0); EOSINOPHILS # (AUTO) 0.4 (0.0-0.4); EOSINOPHILS % 6.2 % (0.0-6.0); HEMATOCRIT 26.9 % (34.2-44.1); HEMOGLOBIN 8.7 g/dL (12.0-16.0); LYMPHOCYTES # (AUTO) 0.7 (1.0-3.2); LYMPHOCYTES % 11.1 % (18.0-39.1); MEAN CORPUSCULAR HEMOGLOBIN 30.3 pg (28-32); MEAN CORPUSCULAR HGB CONC 32.3 g/dL (31-35); MEAN CORPUSCULAR VOLUME 93.7 fL (81-99); MONOCYTES # (AUTO) 0.7 (0.2-0.8); MONOCYTES % 10.3 % (4.4-11.3); NEUTROPHILS # (AUTO) 4.6 (2.1-6.9); NEUTROPHILS % 71.6 % (38.7-80.0); PLATELET COUNT 168 x10e3/uL (140-360); RED BLOOD COUNT 2.87 x10e6/uL (3.6-5.1)
[2018-04-30 05:13] LABS: ANION GAP 12.7 mmol/L (8-16); CALCIUM 7.8 mg/dL (8.4-10.2); CREATININE, SERUM 2.21 mg/dL (0.57-1.11); POTASSIUM 3.7 mmol/L (3.5-5.1)
[2018-04-30] MEDS: HYDRALAZINE HCL 20 MG/ML VIAL IV PRN (05:40)
[2018-04-30] MEDS: (Mirabegron (Myrbetriq) 25 MG) PO SCH (09:00)
[2018-04-30] MEDS ORDERED: VIT D PO SCH (09:00)
--- NOTE | 2018-04-30 09:41 | Progress Note ---
DATE: SUBJECTIVE: Patient is in ICU 196. Patient last night did not have any symptoms, slept well. No paresthesias, no hyperesthesias, and/or no focal weakness noted yesterday or last night. PHYSICAL EXAMINATION: VITAL SIGNS: Temperature is 98.3, pulse of 78, blood pressure is 171/61, pulse oximetry 100% on room air. HEENT: Normocephalic, atraumatic. Pupils are reactive to light and accommodation. No nystagmus present. CVS: S1 and S2 regular. ABDOMEN: Nontender, nondistended. EXTREMITIES: No clubbing, no cyanosis, no edema. LABORATORY VALUES: Today's white count of 6.42, hemoglobin of 8.7, hematocrit of 26.9, and no left shift present. Chemistries: Sodium 144, potassium is 3.7, CO2 of 25, chloride of 110, BUN of 24, creatinine of 2.21. HDL was 43, LDL was 85. MICROBIOLOGY: No results are there. Echocardiogram has been reviewed, has LVH, and carotid revealed mild blocking. Other imaging studies shows, brain CT again yesterday showed no acute abnormalities and no change since 2017. ASSESSMENT: J[id number][id number]-old female with history of moyamoya with residual effect, comes in with hypertensive emergency. The patient is currently in the intensive care unit. Will continue to monitor her blood pressure and continue treating her hypertensive treatment. The patient is currently on losartan, hydralazine, and nifedipine. In lieu of her renal failure, will keep her angiotensin receptor blockers about the same, will not increase it. Over the next 2 days, will watch the blood pressure and the blood pressure goal being 140s/80s. Will continue to monitor the patient along with the consultants. PLAN: To continue watching her in hospital. Will transfer out of the ICU. Will restart all of her home medications. Further recommendations per clinical course. Will continue to monitor the patient along with the consultants. Job#: [id number]
[2018-04-30] MEDS: OYST-CAL-D 500MG TABLET PO SCH (09:48)
[2018-04-30] MEDS: ESCITALOPRAM OXALATE 10 MG TAB PO SCH (09:48)
[2018-04-30] MEDS: PANTOPRAZOLE SOD 40 MG TABEC PO SCH (09:48)
[2018-04-30] MEDS: BUPROPION HCL 100 MG TAB PO SCH ×2 (09:49→16:30)
[2018-04-30] MEDS: DOCUSATE SODIUM 100 MG CAP PO SCH ×2 (09:50→16:30)
--- NOTE | 2018-04-30 09:57 | NUR ---
spoke with dhaval copeland to administer am bp medications to patient with bp 156/79
[2018-04-30] MEDS: LOSARTAN POTASSIUM 25 MG TAB PO SCH (09:58)
[2018-04-30] MEDS: NIFEDIPINE CR 30 MG TAB PO SCH (09:58)
[2018-04-30] MEDS: TORSEMIDE 10 MG TAB PO SCH (09:58)
[2018-04-30] MEDS: HYDRALAZINE HCL 100 MG TABLET PO SCH ×2 (09:58→16:30)
--- NOTE | 2018-04-30 11:59 | NUR ---
ST Note: Order for Speech and Language Eval noted. Pt sleeping but awoke easily. Per pt/family report, pt was awake all night with an upset stomach and just got back into bed after sitting up all morning. Pt agreed to participate in a Speech Language Evaluation but pt's family requested eval be deferred until later today. Will return later time permitting.
--- NOTE | 2018-04-30 14:32 | NUR ---
Interviewee:CAREGIVER 1. Was your hospital visit 04/28/18 scheduled ahead of time? No 2. Can you tell me what happened that brought you back to the hospital this time? TOOK PT'S BLOOD PRESSURE AT HOME AND SYSTOLIC > 200; SEVERE HEADACHE a.Why do you think this happened? WHEN PT LEFT HOSPITAL LAST WEEK B/P MEDICATIONS WERE ADJUSTED b.Was there anything you think that PMC could have been done to prevent this? NO c.How are things going at home/care at SNF? THINGS WERE GOING WELL AT HOME 3. Medications (referring to index hospitalization or the first time you were in the hospital) a. Were changes made in your medications when you were in the hospital on [date of index hospitalization]? Yes Explain:B/P MEDS ADJUSTED Note: If no or not sure, please skip to question d b. Did you understand the changes? Yes Explain:I WAS TOTALLY CLEAR ON NEW DOSAGES c. Were you able to obtain your new medications right away? NO NEW MEDS; JUST CHANGES IN HER CURRENT ONES Explain: d. Were you able to take your medications like the doctor wanted you to? Yes e. Did the hospital give you an accurate, easy to understand list of medications when you left? Yes 4. From your perspective, who is in charge of your care at [facility]? PCP DR PERDOMO 5. How often are you in touch with this provider? How are things going with this provider? ____WE JUST SAW DR PERDOMO LAST WEEK (ONE WEEK AFTER DISCHARGED) 6. Does it seem like this provider and others responsible for your care are talking to each other about your care? Yes ? Referring to your first hospital visit, COULD WE HAVE. STEP 1STEP 2 If YES, ask, to what degree did ditch digger you back to the hospital? Y, N, NA?Definitely a factorSomewhat a factorNot at all a factor 1.Explained things more cleaR? NO 2.Checked in on you from time tIME? NO 3.Talked to you more about your medications and the reason you take them? NO 4.Made it easier for you to get in touch with someone at [facility] when you needed help?NO 5.Reduced the time it took to get an appointment? NO 6.Provided more written materials for you to look over?NO 7.Provided additional support or information to your caregiver or family members?NO 8.Discussed what you might expect to happen in the future regarding your health and the expected course of your illness and treatment?NO 9.Made sure you had the equipment and other things you needed once you arrived home? NO 10.Anything else? (please specify) 7. a. Did you receive a follow-up phone call after your hospitalization? No If no or do not remember, skip to #8. b. If yes, who did you receive the call from? Transitions Nurse Other Nurse Pharmacist PCP Hospitalist Specialist Asphalt Tamper Surgeon Dont remember Multiple calls Other: c. On a scale from 1-10, with 1 being the least and 10 being the most, how helpful was the call? 8. In hindsight, how likely is it that [facility] might have been able to keep you safely at home, preventing the second hospital visit [on x date]? not at all likely Explain: 9. Is there anything else youd like to share with us? I WILL TALK TO THE DOCTOR ABOUT DOING PARAMETERS FOR HER BLOOD PRESSURE MEDS BACAUSE HER BLOOD PRESSURE FLUCTUATES SO MUCH
--- NOTE | 2018-04-30 14:44 | NUR ---
nursing report given to Holly ESPINAL medsur II room 203
--- NOTE | 2018-04-30 17:24 | NUR ---
PT TRANSFERRED FROM ICU TODAY 1526, [id number],DENIES PAIN AND S/S OF DISTRESS NOTED. V/S STABLE AND ORIENTED TO ROOM WITH CALL LIGHT IN PLACE. WILL CONTINUE MONITOR
[2018-04-30] MEDS: TRAZODONE HCL 50 MG TAB PO SCH (20:11)
[2018-04-30] MEDS: ATORVASTATIN 40 MG TAB PO SCH (20:11)
[2018-04-30] MEDS ORDERED: ATORVASTATIN 20 MG TAB PO SCH (21:00)
[2018-05-01] VITALS (8 sets, daily range): BP systolic 139–190; BP diastolic 65–81
--- NOTE | 2018-05-01 00:26 | NUR ---
BP rechecked 165/73 mmhg, HR 78 bpm. asymptomatic
[2018-05-01] MEDS: HYDRALAZINE HCL 20 MG/ML VIAL IV PRN (05:34)
--- NOTE | 2018-05-01 05:36 | NUR ---
BP rechecked 194/79 mmhg, prn medication given. patient is alert, no c/o headache.
--- NOTE | 2018-05-01 06:05 | NUR ---
BP RECHECKED 177/73 [facility]. PATIENT HAS NO COMPLAINTS. ASYMPTOMATIC.
--- NOTE | 2018-05-01 07:00 | NUR ---
RECEIVED PATIENT RESTING IN BED. NO ACUTE DISTRESS NOTED. DAUGHTER AT BEDSIDE. CALL LIGHT WITHIN REACH. BED IN THE LOWEST POSITION.
--- NOTE | 2018-05-01 07:33 | Progress Note ---
DATE: Patient is a 67-year-old female who comes in with a history of CVA, hemiparesis with more focal neurological changes of nystagmus and questionable diplopia. Patient has been seen by neurology. Currently, doing better. Blood pressure was maintained between 130/70 yesterday. This morning blood pressure went up around 70. Patient is alert and oriented. PHYSICAL EXAMINATION GENERAL: She is alert and oriented times 3. VITAL SIGNS: Temperature is 96.1, blood pressure is 190/81, pulse oximetry 93%. HEENT: Normocephalic and atraumatic. Pupils reactive to light and accommodation. There is no nystagmus present. ABDOMEN: Nontender and nondistended. LUNGS: Clear to auscultation bilaterally. CV: S1 and S2 normal. Regular rate and rhythm. LABORATORY VALUES: All within normal limits. Hemoglobin was 8.7, hematocrit of 26.9. Chemistries are normal. HDL is 43 and LDL of 35. Coags have been normal. ASSESSMENT 1. A 67-year-old female with moyamoya disease, status post cerebrovascular accident. 2. Hypertensive emergency. 3. Hyperlipidemia. 4. Acute kidney injury. 5. Hyperlipidemia. PLAN: Keep her pressures between 140/80. Continue to monitor the patient. Possible discharge after speech and PT evaluation. Further recommendations as per clinical course. Will continue monitoring the patient along with consultants. Job#: [id number] DUONG
[2018-05-01] MEDS ORDERED: ERGOCALCIFEROL 50,000 UNIT CAP PO SCH (09:00)
[2018-05-01] MEDS: (Mirabegron (Myrbetriq) 25 MG) PO SCH (09:00)
[2018-05-01] MEDS: TORSEMIDE 10 MG TAB PO SCH (09:17)
[2018-05-01] MEDS: DOCUSATE SODIUM 100 MG CAP PO SCH ×2 (09:17→16:21)
[2018-05-01] MEDS: HYDRALAZINE HCL 100 MG TABLET PO SCH ×2 (09:17→16:21)
[2018-05-01] MEDS: PANTOPRAZOLE SOD 40 MG TABEC PO SCH (09:17)
[2018-05-01] MEDS: OYST-CAL-D 500MG TABLET PO SCH (09:17)
[2018-05-01] MEDS: NIFEDIPINE CR 30 MG TAB PO SCH (09:17)
[2018-05-01] MEDS: BUPROPION HCL 100 MG TAB PO SCH ×2 (09:17→16:21)
[2018-05-01] MEDS: LOSARTAN POTASSIUM 25 MG TAB PO SCH (09:17)
[2018-05-01] MEDS: ESCITALOPRAM OXALATE 10 MG TAB PO SCH (09:17)
--- NOTE | 2018-05-01 19:26 | NUR ---
REPORT GIVEN TO ONCOMING NURSE, PATIENT IS RESTING IN BED. NO ACUTE DISTRESS NOTED. DAUGHTER AT BEDSIDE. CALL LIGHT WITHIN REACH. BED IN THE LOWEST POSITION. BED ALARM ON.
[2018-05-01] MEDS: TRAZODONE HCL 50 MG TAB PO SCH (20:27)
[2018-05-01] MEDS: ATORVASTATIN 40 MG TAB PO SCH (20:27)
[2018-05-02] VITALS (7 sets, daily range): BP systolic 143–184; BP diastolic 64–82
[2018-05-02 04:51] LABS: BASOPHILS % 0.6 % (0.0-1.0); EOSINOPHILS # (AUTO) 0.4 (0.0-0.4); EOSINOPHILS % 8.7 % (0.0-6.0); HEMATOCRIT 27.8 % (34.2-44.1); LYMPHOCYTES # (AUTO) 0.5 (1.0-3.2); MEAN CORPUSCULAR HEMOGLOBIN 30.5 pg (28-32); MEAN CORPUSCULAR HGB CONC 32.4 g/dL (31-35); MEAN CORPUSCULAR VOLUME 94.2 fL (81-99); MONOCYTES # (AUTO) 0.5 (0.2-0.8); NEUTROPHILS # (AUTO) 3.3 (2.1-6.9); NEUTROPHILS % 68.3 % (38.7-80.0); PLATELET COUNT 185 x10e3/uL (140-360); RED BLOOD COUNT 2.95 x10e6/uL (3.6-5.1)
[2018-05-02 05:08] LABS: ANION GAP 13.4 mmol/L (8-16); CALCIUM 8.1 mg/dL (8.4-10.2); CREATININE, SERUM 2.35 mg/dL (0.57-1.11); POTASSIUM 3.4 mmol/L (3.5-5.1)
--- NOTE | 2018-05-02 05:48 | NUR ---
BP RECHECKED 192/78MMHG MN 75BPM. PRN MEDICATION GIVEN.
[2018-05-02] MEDS: HYDRALAZINE HCL 20 MG/ML VIAL IV PRN (05:49)
--- NOTE | 2018-05-02 06:28 | NUR ---
BP RECHECKED 170/75 [facility].
--- NOTE | 2018-05-02 06:50 | NUR ---
RECEIVED PATIENT RESTING IN BED, NO ACUTE DISTRESS NOTED. DAUGHTER AT BEDSIDE. DENIES PAIN OR DISCOMFORT AT THIS TIME. CALL LIGHT WITHIN REACH. BED IN THE LOWEST POSITION.
--- NOTE | 2018-05-02 07:00 | NUR ---
NOTIFIED DR. PERDOMO OF POTASSIUM LEVEL OF 3.4. ORDER GIVEN FOR 20 MEQ PO. THEN DC PATIENT.
[2018-05-02] MEDS ORDERED: POTASSIUM CHLORIDE 20 MEQ TAB CR PO STA (07:03)
[2018-05-02] MEDS: (Mirabegron (Myrbetriq) 25 MG) PO SCH (07:48)
--- NOTE | 2018-05-02 07:48 | NUR ---
POTASSIUM 20 MEQ PO ADMINISTERED ORDERED.
[2018-05-02] MEDS: LOSARTAN POTASSIUM 25 MG TAB PO SCH (07:49)
[2018-05-02] MEDS: TORSEMIDE 10 MG TAB PO SCH (07:49)
[2018-05-02] MEDS: DOCUSATE SODIUM 100 MG CAP PO SCH (07:49)
[2018-05-02] MEDS: PANTOPRAZOLE SOD 40 MG TABEC PO SCH (07:49)
[2018-05-02] MEDS: BUPROPION HCL 100 MG TAB PO SCH (07:50)
[2018-05-02] MEDS: OYST-CAL-D 500MG TABLET PO SCH (07:50)
[2018-05-02] MEDS: NIFEDIPINE CR 30 MG TAB PO SCH (07:50)
[2018-05-02] MEDS: HYDRALAZINE HCL 100 MG TABLET PO SCH (07:50)
[2018-05-02] MEDS: ESCITALOPRAM OXALATE 10 MG TAB PO SCH (07:50)
--- NOTE | 2018-05-02 08:19 | Progress Note ---
DATE: SUBJECTIVE: Patient is a 67-year-old female with a history of CVA, who comes in with focal weakness. Stroke has been ruled out. The patient continues to have high blood pressure. Hydralazine twice a day has been given to the patient and also IV has been given. Stable blood pressures in the morning, however, in the evenings, the patient's blood pressure does rise. Currently asymptomatic, no complaints. 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 PHYSICAL EXAMINATION: VITAL SIGNS: At this time, blood pressure is 177/77, temperature is 97, and pulse oximetry 93% on room air. HEENT: Normocephalic, atraumatic. Pupils are reactive to light and accommodation. CVS: S1 and S2 normal. Regular rate and rhythm. ABDOMEN: Nontender, nondistended. EXTREMITIES: No clubbing, no cyanosis, no edema. NEUROLOGICAL: No new focal deficits. LABORATORY VALUES: White count is 4.8, hemoglobin of 9, hematocrit of 27.8. Sodium of 140, potassium 3.4, BUN of 25, creatinine of 2.35. ASSESSMENT: Bxcjf-[id number]-wgxn-old lady with: 1. Hypertensive emergency with incurring encephalopathy. 2. History of cerebrovascular accident with residual weakness. 3. History of anemia. 4. History of chronic kidney disease. PLAN: To discharge the patient today. Follow up the patient as an outpatient. Further recommendations per clinical course. The patient will be also followed by Dr. Garcia and Dr. Castro as an outpatient. Job#: [id number]
--- NOTE | 2018-05-02 09:25 | NUR ---
BP FOR MORNING VITALS WAS 184/82. MORNING BP SCHEDULED MEDICATIONS ADMINISTERED, BP NOW IS 143/64.
--- NOTE | 2018-05-02 10:11 | NUR ---
RECEIVED DC ORDER FROM MD. PATIENT IS IN STABLE CONDITION. IV LINES TO LEFT AC AND LEFT HAND DC'D WITH TIP INTACT, PRESSURE APPLIED TO SITE, NO BLEEDING NOTED. DISCHARGE TEACHING PROVIDED TO PATIENT AND DAUGHTER, THEY BOTH VERBALIZED UNDERSTANDING. ALL PERSONAL ITEMS ON HAND. DISCHARGE FOLDER WHICH INCLUDES DC PAPERWORK AND PRESCRIPTIONS ON HAND. PATIENT ACCOMPANIED TO PRIVATE AUTO VIA WHEELCHAIR BY STAFF.
== END 2018-05-02 10:11 | disposition home or self-care (01) | DRG 305 ==
LOC: ER 20:38 → ERHOLD 22:53 → ICU 23:43 → MED/SURG2 04-30 15:10
PROVIDERS: ADMIT Family Medicine; ATTEND Family Medicine
DX: I16.1 Hypertensive emergency (principal); N18.4 Chronic kidney disease, stage 4 (severe); N17.9 Acute kidney failure, unspecified; G93.49 Other encephalopathy; I67.5 Moyamoya disease; I12.9 Hypertensive chronic kidney disease with stage 1 through stage 4 chronic kidney disease, or unspecified chronic kidney disease; E11.22 Type 2 diabetes mellitus with diabetic chronic kidney disease; Z79.4 Long term (current) use of insulin; E78.5 Hyperlipidemia, unspecified; G83.24 Monoplegia of upper limb affecting left nondominant side; R29.810 Facial weakness; Z95.5 Presence of coronary angioplasty implant and graft; I25.10 Atherosclerotic heart disease of native coronary artery without angina pectoris; Z91.018 Allergy to other foods; Z91.048 Other nonmedicinal substance allergy status
CPT/HCPCS: 36415; 51700; 70450; 80048; 80053; 80061; 80307; 81001; 82140; 82550; 82553; 82948; 83036; 84484; 85025; 85610; 85730; 92523; 93005; 93306; 93880; 99284; J0360